=== PATIENT | female | born 1970 | race Caucasian/White ===

== ENCOUNTER 2021-01-04 02:29 | Outpatient (CLI) | payer BC, SELFPAY ==
[2021-01-04 07:55] LABS: ALT 27 U/L (14-59); AST 29 U/L (15-37); Albumin 3.9 g/dL (3.4-5.0); Alkaline Phosphatase 72 U/L (46-116); Anion Gap 8.6 mmol/L (3-11); BUN 18 mg/dL (7-18); Bilirubin, Total 0.7 mg/dL (0.2-1.0); CO2 27.4 mmol/L (21.0-32.0); CREATININE 0.7 mg/dL (0.55-1.02); Calcium 8.4 mg/dL (8.5-10.1); Calculated LDL 90 mg/dL (<100); Chloride 104 mmol/L (98-107); Cholesterol 230 mg/dL (<200); Glucose 88 mg/dL (74-106); HDL Cholesterol 133 mg/dL (40-60); Potassium 4.1 mmol/L (3.5-5.1); Sodium 140 mmol/L (136-145); Triglyceride 38 mg/dL (<150)
== END 2021-01-04 02:30 | disposition home or self-care (01) ==
LOC: LBO 02:29
PROVIDERS: PCP Family Medicine
DX: Z00.00 Encounter for general adult medical examination without abnormal findings (principal); Z13.220 Encounter for screening for lipoid disorders; Z13.228 Encounter for screening for other metabolic disorders
CPT/HCPCS: 36415; 80053; 80061

== ENCOUNTER 2021-03-15 11:39 | Outpatient (REF) | payer BC, SELFPAY ==
--- NOTE | 2021-03-15 08:00 | PAPFT_PTH ---
PATIENT: Shirin Constantino LOC: [facility] U#:[id number] AGE/SX: 50/F ROOM: RE03/15/[address]: Nicolette Haji APRN : 1970 BED: DIS: 03/15/2021 SPEC #: [id number] RECD: 03/15/21 12:49 STATUS: ENT REQ #: [id number] PAM: 03/15/21 08:[address]: Nicolette Haji DEPT: [facility] Cytology RECD BY: Libby Schwartz ENTERED: 03/15/21 12:49 SP TYPE: PAPFT OT DR: Saritha Nelson MD, DC Tissues: 1 - CX/ENDOCX FOR PAP SMEARS Procedures: PAP THIN PREP/UVM Screening HPV DNA PROBE Comments: [id number]
== END 2021-03-15 11:40 | disposition home or self-care (01) ==
LOC: LBN 11:39
PROVIDERS: PCP Family Medicine
DX: Z12.4 Encounter for screening for malignant neoplasm of cervix (principal); Z11.51 Encounter for screening for human papillomavirus (HPV)
CPT/HCPCS: 88142; 87624

== ENCOUNTER 2021-04-08 02:08 | Outpatient (CLI) | payer BC, SELFPAY ==
--- NOTE | 2021-04-08 09:00 | DI.MAMMO_ITS ---
Exam(s) MAMMO SCREENING EXAM: MAMMO SCREENING CLINICAL HISTORY: screening,Z12.39. TECHNIQUE: Bilateral full field digital CC and MLO mammographic images were obtained with 3D tomosyn thesis and utilizing computer aided detection (CAD). COMPARISON: Prior mammograms dating back to 2011, the most recent being September 2017.. Significant family history. Both her mother and sister were diagnosed with breast cancer in their fl d 40s. FINDINGS: There are no CAD designations. There are no new spiculated masses nor malignant appearing microcalcification groups. There is no significant architectural distortion nor skin thickening-retraction. IMPRESSION: No radiographic evidence of malignancy. BI-RADS Category 1 - Negative Breast Density - Category C - Heterogeneously dense Breast density Category C or D implies that the patient has dense breast tissue. Dense breast tissue can make it harder to find cancer on a mammogram. Dense breast tissue is also associated with an incr eased risk of breast cancer. This information about the result of the mammogram report was provided to the patient to raise their awareness. Use this report when you speak with the patient about their risks for breast cancer, which includes their family history. At that time, you may recommend additional screening tests (Ultrasoun d or MRI) as these tests may add significant information. A negative radiographic report should not delay biopsy if a dominant or clinically suspicious mass is present. Up to ten percent of cancers are not identified on mammography. A negative report may reinforce clinical impression. Adenosis and dense breasts may obscure an underlying neoplasm. False positive reports average 6 to 10%. Patient will receive a letter notifying them of these results.
== END 2021-04-08 02:28 ==
PROVIDERS: PCP Family Medicine
DX: Z12.31 Encounter for screening mammogram for malignant neoplasm of breast (principal)
CPT/HCPCS: 77063; 77067

== ENCOUNTER 2021-11-29 12:50 | Outpatient (REF) | payer BC, SELFPAY ==
[2021-11-30 13:56] LABS: COVID-19 RT-PCR UVMMC Result Negative (Negative)
== END 2021-11-29 12:51 | disposition home or self-care (01) ==
LOC: NCHCN 12:50
PROVIDERS: Visit Provider Physician Assistant
DX: Z20.822 Contact with and (suspected) exposure to COVID-19 (principal)
CPT/HCPCS: U0003

== ENCOUNTER → 2022-08-01 02:26 | Outpatient (CLI) | payer BC, SELFPAY ==
--- NOTE | 2022-08-01 17:00 | DI.MAMMO_ITS ---
Exam(s) MAMMO SCREENING EXAM: MAMMO SCREENING CLINICAL HISTORY: screening TECHNIQUE: Mammograms were interpreted according to the usual protocol including computer analysis w [employer] CAD system, tomosynthesis and C-view imaging. COMPARISON: 2012 through 2020 FINDINGS: The breasts are composed of scattered fibroglandular densities, Breast Density category B. No suspicious masses or suspicious microcalcifications are seen. No skin thickening or abnormal axillary lymph nodes are seen. There has been no significant change from prior exams. IMPRESSION: BI-RADS Category 1, Negative mammogram Yearly screening mammography is recommended. Breast Density - Category B, scattered fibroglandular densities. A negative radiographic report should not delay biopsy if a dominant or clinically suspicious mass is present. Up to ten percent of cancers are not identified on mammography. A negative report may reinforce clinical impression. Adenosis and dense breasts may obscure an underlying neoplasm. False positive reports average 6 to 10%. Patient will receive a letter notifying them of these results.
== END ==
PROVIDERS: PCP Nurse Practitioner Family; Visit Provider Nurse Practitioner Women's Health
DX: Z12.31 Encounter for screening mammogram for malignant neoplasm of breast (principal)
CPT/HCPCS: 77063; 77067

== ENCOUNTER 2022-12-22 06:48 | Day surgery (SDC) | payer BC, SELFPAY ==
--- NOTE | 2022-12-21 21:24 | W.PM.DSUDISC ---
Date of service: 12/22/22 Time of Service: 08:29 Discharge Plan Disposition Patient Disposition: Home Condition: Good Discharge Details Reason For Visit: Screening colonoscopy Attending Provider: Harshad Mullins Primary Care Provider: Israel Womack Home Meds and New Rx's Prescriptions: Continued cholecalciferol (vitamin D3) 50 mcg (2,000 unit) capsule 50 mcg PO DAILY ascorbic acid (vitamin C) 500 mg tablet 500 mg PO DAILY Collagen Plus Vitamin C 125-740 mg capsule 1 cap PO DAILY magnesium 250 mg tablet 250 mg PO DAILY estradiol 0.01 % (0.1 mg/gram) cream 1 g VG DAILY Qty: 42.5 2RF Rx Instructions: Use 1 pea sized amount at vaginal opening daily for and 0.5 gm intravaginally for 2 weeks then 2x per week Discontinued bisacodyl [Dulcolax (bisacodyl)] 5 mg tablet,delayed release (DR/EC) 5 mg PO ONCE Qty: 4 0RF Rx Instructions: Take according to provider's instructions for colonoscopy prep. polyethylene glycol 3350 17 gram/dose powder 17 g PO ONCE Qty: 238 0RF Rx Instructions: To be taken as directed by prescriber's office for colonoscopy prep. Discharge Instructions Instructions: Colorectal Polyps (GEN) Additional Instructions: Shirin, we were able to complete your colonoscopy without any difficulty today. I did find a single polyp in the beginning part of your large intestine which is also called the cecum. The polyp was quite small. I removed it completely. When I have the results of the pathology regarding what type of polyp is, I we will notify you of those results. 1. If tolerated, consume a soft, low fiber diet for 1-2 days. 2[address] Do not drive, drink alcohol, operate machinery, make critical decisions, or do activities that require coordination or balance for 24 hours. 3. Because air was put into your colon during the procedure, expelling air from your rectum (passing gas or farting) is normal. 4. You may not have a bowel movement for 1-3 days because of the colonoscopy prep. This is normal. 5. Go directly to the emergency room if you notice any of the following: Develop chills (warm to touch), or if you have a thermometer and your temperature is above 101 Difficulty breathing or difficultly swallowing Persistent vomiting Severe abdominal pain, other than gas cramps Severe chest pain Black, tarry stools Any bleeding ? exceeding one tablespoon 6. Call your physician if the site where your intravenous was started becomes red, swollen, painful, and warm to touch. 7. Your physician has reviewed your pre-procedure medications. Please continue to take those medications as previously ordered. You will be given specific information/education regarding any changes to your medications before leaving. Activity:: Activity as Tolerated Diet:: As Tolerated Discharge Orders Discharge Orders: Discharge Order (Routine); Ordered 12/21/22 Ordered By: Harshad Mullins DS: Diagnosis Discharge Diagnosis (1) Colon cancer screening: Status: Resolved Asessment and Plan: I will follow-up on the polypectomy result.
--- NOTE | 2022-12-21 21:26 | COLE_ITS ---
Date of service: 12/22/22 Time of Service: 08:30 Colonoscopy Report Date of procedure: 12/22/22 Pre-op diagnosis general: Screening colonoscopy Post-op diagnosis procedure note: other (Cecal polyp) Procedure: Colonoscopy with polypectomy Surgeon: Harshad Mullins Anesthesia Type: General:No Airway Estimated blood loss (mL): 5 Pathology: other (Cecal polyp) Complications: None Disposition: same day Indications: Shirin is a 52 year old woman who is undergoing a screening colonoscopy Prep: Miralax/Dulcolax Procedure Start Time: 08:12 Procedure End Time: :22 Retraction Time: 6 Findings: Cecal polyp Procedure Description: After the induction of monitored anesthetic care, and with the patient in left lateral decubitus position, I began by performing an external anorectal exam.? Perineum and skin were normal, as was the anal verge.? There was no evidence of external hemorrhoids.? Next, I performed a digital rectal exam.? I did not appreciate any abnormal findings.? Next, I advanced a colonoscope into the rectal vault.? I performed retroflexion.? This was normal.? Using insufflation, I then advanced the colonoscope beyond the rectal folds and into the sigmoid colon before advancing towards the cecum.? The quality of the prep was outstanding.? The scope was noted to be in the cecum by identification of the ileocecal valve and appendiceal orifice.? There was a single 0.25 cm polyp in the cecum. I removed this with cold forceps polypectomies. It appeared sessile in nature. There was minimal bleeding with polypectomy. I then began withdrawing the colonoscope using repeated irrigation as necessary for full jesse luation of the colonic mucosa. ?Once the scope was withdrawn to the level of the rectum, great care was taken to examine portions of the rectal folds.? Finally, the scope was withdrawn and the patient was brought to the same-day surgery recovery unit as the anesthetic wore off. ?The findings and instructions were shared with the patient prior to discharge.
[2022-12-22 06:50] VITALS: BP 137/54; PULSE 72; RESP 16; TEMP 36.1; O2SAT 98
[2022-12-22] MEDS: Lactated Ringers 1,000 ML 80 ML IV (07:19)
--- NOTE | 2022-12-22 07:58 | W.ANESPRE ---
General Info Date of Service Date Performed: 12/22/22 Height: 5 ft 4 in Weight: 64.5 kg Body Mass Index (BMI): 24.4 Surgical Procedure: Operation Date: 12/22/22 08:20 Proposed Procedure Side Surgeon ratna Mullins MD Meds Allergies and Home Medications Allergies Allergy/AdvReac Type Severity Reaction Status Date / Time No Known Allergies Allergy Verified 12/22/22 06:56 Home Medication Medication Instructions Recorded estradiol 0.01% (0.1 mg/gram) 1 g vaginal DAILY #42.5 grams 06/20/22 vaginal cream ascorbic acid (vitamin C) 500 mg 500 mg PO DAILY 07/11/22 tablet ascorbic acid 125 mg-collagen, 1 cap PO DAILY 07/11/22 hydrolyzed 740 mg capsule (Collagen Plus Vitamin C) magnesium 250 mg tablet 250 mg PO DAILY 07/11/22 cholecalciferol (vitamin D3) 50 50 mcg PO DAILY 11/24/22 mcg (2,000 unit) capsule Current Visit Medications: Current Medications Generic Name Dose Route Start Last Admin Trade Name Braydenq PRN Reason Stop Dose Admin Hyoscyamine Sulfate 0.125 mg 12/21/22 21:27 Hyoscyamine 0.125 Mg Sl/Oral/Chew SL DIRECTED PRN Ringer's Solution 1,000 mls @ 80 mls/hr 12/22/22 06:00 12/22/22 07:19 IV 01/20/23 23:59 80 mls/hr INFUSION NITIN Administration IV Miscellaneous Supplies 1 each 12/22/22 06:00 Iv Access IV 01/20/23 23:59 DIRECTED NITIN Ondansetron HCl 4 mg 12/21/22 21:27 Ondansetron 4 Mg/2 Ml Vial IVP Q4H PRN PRN Nausea / Vomiting Sodium Chloride 0 ml 12/22/22 06:00 Normal Saline Flush 10 Ml Syr IV 01/20/23 23:59 PRN PRN Sodium Chloride 0 ml 12/22/22 06:00 Normal Saline 10 Ml Vial IJ 01/20/23 23:59 DIRECTED PRN Sterile Water 0 ml 12/22/22 06:00 Water,Injection,Sterile 10 Ml Vial IJ 01/20/23 23:59 DIRECTED PRN PFSH Active Problems Active Problems: Problem Status Onset Code Postmenopausal Z78.0 Atrophic vaginitis N95.2 Annual physical exam Z00.00 Foot pain M79.673 Joint pain 05/18/10 M25.50 Fibrocystic disease of breast 09/16/11 N60.19 Distal radius fracture, left 08/23/16 S52.502A Sacro-iliac pain M53.3 Myofacial muscle pain M79.7 Medical History Medical History Low back pain MRI 02/07/14 - NEG Thoracic back pain (01/20/15) Surgical History Surgical History WRIST FX 01/08/16-[facility] LEFT Tobacco Smoking/Tobacco Use Status: Never Second hand exposure: No Alcohol Alcohol Intake: current Alcohol intake frequency: a few times a week Alcohol type: beer, wine and hard liquor Substance Use Substance use: Never Substance use type: does not use Vital Signs and Lab Results Vital Signs Most Recent Vital Signs in EMR: Most Recent Vital Signs Temp Pulse Resp BP Pulse Ox 36.1 C L 72 16 137/54 L 98 12/22/22 06:50 12/22/22 06:50 12/22/22 06:50 12/22/22 06:50 12/22/22 06:50 Lab Results Blood Type / Crossmatch: No Data to Display Complete Blood Count: No Data to Display Complete Metabolic Panel: No Data to Display Liver Function Panel: No Data to Display Coagulation Panel: No Data to Display Cardiac Panel: No Data to Display Arterial Blood Gas: No Data to Display Venous Blood Gas: No Data to Display Pancreas Panel: No Data to Display Thyroid Panel: No Data to Display Infectious Disease: No Data to Display Blood Cultures: No Data to Display Toxicology Panel: No Data to Display Panel: No Data to Display Anesthesia Assessment and Plan Anesthesia History Personal History: No History of Anesthesia Complications Family History: No Family History of Anesthesia Complications Exercise Tolerance Exercise Tolerance: Metabolic Equivalents>4 Pertinent Negatives Pertinent Negatives: No Symptoms of GERD, No Major Cardiovascular Symptoms or Complaints and No Major Pulmonary Symptoms or Complaints Cardiac & Pulmonary Exam Cardiac Exam: Normal S1/S2 Heart Sounds Pulmonary Exam: Clear Bilateral Breath Sounds Implantable Cardiac Device Does patient have a Pacemaker or an ICD?: No Airway Exam Known Difficult Airway: No Mallampati Class: 1 Mouth Opening: Normal (> 3cm) Thyromental Distance: Greater than 3 cm Neck Range of Motion: Full ROM Neck Circumference: Normal Teeth Condition: Normal Dentition ASA Classification ASA Score: ASA 2 Emergency Case?: No NPO Status NPO Status: NPO Clears >2 hours, Solids >8 hours Status Status: Not Relevant due to Medical History Anesthesia Plan Resuscitation Status: Full Code Anesthesia Technique: General Anesthesia Airway Planned: Natural Airway Monitors Used: Standard Monitors
[2022-12-22 08:00] VITALS: BMI 24.4
--- NOTE | 2022-12-22 08:19 | BOWEL_PTH ---
PATIENT: Shirin Constantino LOC: [facility] U#:[id number] AGE/SX: 52/F ROOM: RE12/22/[address]: Harshad Mullins MD : 1970 BED: DIS: 12/22/2022 SPEC #: [id number] RECD: 12/22/22 12:29 STATUS: LUCA REQ #: [id number] PAM: 12/22/22 08:[address]: Harshad Mullins DEPT: Surgical Specimen RECD BY: Libby Schwartz ENTERED: 12/22/22 12:29 SP TYPE: Bowel OTHR DR: Israel Wiggins DNP Tissues: 1 - BIOPSY BOWEL Procedures: GROSS AND MICRO LEVEL 4 Comments: [id number]
[2022-12-22 08:26] VITALS: BP 108/47; PULSE 59; RESP 14; TEMP 36.5; O2SAT 97
--- NOTE | 2022-12-22 08:34 | W.ANESPOSTOP ---
Postoperative Evaluation Date, Time and Location Date Performed: 12/22/22 Time Performed: 08:34 Patient Location: Day Surgery Unit Vital Signs Most Recent Imported Vital Signs: Most Recent Vital Signs Temp Pulse Resp BP Pulse Ox 36.5 C 59 L 14 108/47 L 97 12/22/22 08:26 12/22/22 08:26 12/22/22 08:26 12/22/22 08:26 12/22/22 08:26 Pain Score Most Recent Pain Score: Most Recent Pain Score Pain Level 0 12/22/22 08:26 Assessment Mental Status: Awake (Alert & Oriented to Patient Baseline) Airway and Respiratory Function: Patent airway with normal (patient baseline) respiratory exam Cardiovascular Function: Hemodynamically Stable Hydration Status: Adequately Hydrated Nausea & Vomiting: No Nausea or Vomiting Pain: Pt. Denies Any Pain Peripheral Nerve Block: Patient did not receive a nerve block
[2022-12-22 08:57] VITALS: BP 101/69; PULSE 54; RESP 16; TEMP 36.3; O2SAT 95
== END 2022-12-22 09:24 | disposition home or self-care (01) ==
PROVIDERS: PCP Nurse Practitioner Family; Visit Provider Surgery
PROC: 0DJD8ZZ Inspection of Lower Intestinal Tract, Via Natural or Artificial Opening Endoscopic (ICD-10-PCS; CPT 45378; principal; 2022-12-22 08:15)
DX: Z12.11 Encounter for screening for malignant neoplasm of colon (principal); K63.5 Polyp of colon
CPT/HCPCS: 45380; 88305

== ENCOUNTER 2023-04-27 15:44 | Outpatient (CLI) | payer BC, SELFPAY ==
--- NOTE | 2023-04-27 15:30 | RT.EKG_ITS ---
APPROVED REPORT Exam: Resting ECG Reason for Exam: palpitations Patient Location: O HR:55 bpm ECG Measurements Heart Rate 55 AXIS MD 163 P 62 QRSd 97 QRS 24 QT 434 T 29 QTc 416 Conclusion Sinus rhythm...normal P axis, V-rate 50- 99 Probable left atrial enlargement...P >50mS, <-0.10mV V1 RSR' in V1 or V2 Baseline wander in lead(s) V2,V6
== END 2023-04-27 15:45 | disposition home or self-care (01) ==
LOC: DI.CM 15:45
PROVIDERS: PCP Nurse Practitioner Family; Visit Provider Nurse Practitioner Family
DX: R00.2 Palpitations (principal)
CPT/HCPCS: 93010

== ENCOUNTER 2023-05-05 02:51 | Outpatient (CLI) | payer BC, SELFPAY ==
[2023-05-05 07:17] LABS: Abs Immature Grans 0.02 10^3/uL (0.0-0.06); Absolute Basophil Count 0.07 10^3/uL (0.0-0.2); Absolute Eosinophil Count 0.26 10^3/uL (0.0-0.7); Absolute Lymphocyte Count 2.18 10^3/uL (1.2-3.4); Absolute Monocyte Count 0.47 10^3/uL (0.1-0.8); Absolute Neutrophil Count 2.55 10^3/uL (1.2-6.7); Basophils % 1.3; Eosinophils % 4.7; HCT 40.6 % (36.0-46.0); HGB 13.4 g/dL (11.2-15.7); Immature Grans % 0.4; Lymphocytes % 39.3; MCH 29.7 pg (27.0-33.0); MCV 90 fL (80-95); MPV 9.4 fL (8.0-11.0); Monocytes % 8.5; Neutrophils % 45.8; Platelet Count 225 10^3/uL (130-400); RBC 4.51 10^6/uL (3.93-5.22); RDW 12.7 % (11.7-14.6); RDW-SD 42.2 fL; WBC 5.55 10^3/uL (4.4-10.8)
[2023-05-05 08:08] LABS: Anion Gap 7.4 mmol/L (3-11); BUN 15 mg/dL (7-18); CO2 27.6 mmol/L (21.0-32.0); CREATININE 0.7 mg/dL (0.55-1.02); Calcium 8.8 mg/dL (8.5-10.1); Calculated LDL 107 mg/dL (<100); Chloride 104 mmol/L (98-107); Cholesterol 254 mg/dL (<200); Estimated GFR 103.35 (mL/min/1.73m2); Glucose 82 mg/dL (74-106); HDL Cholesterol 130 mg/dL (40-60); Potassium 4.5 mmol/L (3.5-5.1); Sodium 139 mmol/L (136-145); TSH (W/Ref FT4) 2.49 uIU/mL (0.36-3.74); Triglyceride 88 mg/dL (<150)
== END 2023-05-05 02:52 | disposition home or self-care (01) ==
PROVIDERS: PCP Nurse Practitioner Family; Visit Provider Nurse Practitioner Family
DX: R00.2 Palpitations (principal); R79.89 Other specified abnormal findings of blood chemistry
CPT/HCPCS: 36415; 80048; 80061; 84443; 85025

== ENCOUNTER 2023-06-02 14:29 | Outpatient (RCR) | payer BC, SELFPAY ==
--- NOTE | 2023-06-02 14:30 | HOLTER_ITS ---
APPROVED REPORT Conclusion This is a 48-hour Holter monitor ordered for palpitations Rhythm throughout was sinus with an average heart rate of 67. Minimum was 41, maximum 146 There were very rare isolated atrial and ventricular ectopic beats Patient symptom of fluttering corresponded to an isolated premature atrial contraction There was no atrial fibrillation, no high-grade AV block, no pauses greater than 3 seconds
== END 2023-06-03 23:59 | disposition home or self-care (01) ==
LOC: CARDOPNVT 14:29
PROVIDERS: PCP Nurse Practitioner Family; Visit Provider Nurse Practitioner Family
DX: R00.2 Palpitations (principal)
CPT/HCPCS: 93225

== ENCOUNTER 2023-06-04 16:59 | Outpatient (RCR) | payer BC, SELFPAY | END 2023-07-04 23:59 | disposition home or self-care (01) | LOC: CARDOPNVT 16:59 | PROVIDERS: PCP Nurse Practitioner Family; Visit Provider Nurse Practitioner Family | DX: R00.2 Palpitations (principal) | CPT/HCPCS: 93226 ==

== ENCOUNTER → 2023-06-14 00:40 | Outpatient (CLI) | payer BC, SELFPAY ==
--- NOTE | 2023-06-14 14:53 | DI.US_ITS ---
APPROVED REPORT EXAM: Comprehensive 2D, Doppler, and color-flow Echocardiogram Patient Location: Out-Patient Bow Making Machine Operator: Jacinda Mukherjee RDCS (AE) Indications: Palpitations Other Information Study Quality: Good Conclusion Normal left ventricular wall thickness and chamber size. Ejection fraction is 59%. Wall motion is n ormal. Diastolic function is normal Normal right ventricular size and systolic function Both atria are normal in size There is no structural or hemodynamically significant valvular disease Estimated right ventricular systolic pressure is 24 mmHg Wall motion Left Ventricle The left ventricle is normal size. The left ventricular systolic function is normal. The left ventric ular ejection fraction is within the normal range. There is normal left ventricular wall thickness. T here is normal LV segmental wall motion. There is no ventricular septal defect visualized. LVEF is 59 %. Right Ventricle The right ventricle is normal size. The right ventricular systolic function is normal. Atria The left atrium size is normal. The right atrium size is normal. The interatrial septum is intact wit h no evidence for an atrial septal defect. Aortic Valve The aortic valve is normal in structure. Aortic valve is trileaflet. There is no aortic valvular sten osis. No aortic regurgitation is present. Mitral Valve The mitral valve is normal in structure. No evidence of mitral valve stenosis. Trace to mild mitral r egurgitation. Tricuspid Valve The tricuspid valve is normal in structure. There is no tricuspid valve stenosis. Trace tricuspid reg urgitation. The RVSP is 24.2 mmHg. Pulmonic Valve The pulmonary valve is normal in structure. There is no pulmonic valvular stenosis. Trace pulmonic re gurgitation. Great Vessels The aortic root is normal in size. The ascending aorta is normal in size. Aortic arch is normal in ca liber. IVC is normal in size and collapses >50% with inspiration. Pericardium There is no pericardial effusion. 2D Dimensions IVSD d PLAX 0.78 cm F: 0.6-1.0 Ao Root d 2.63 cm F: 2.7 - 3.3 LVPW d PLAX 0.78 cm F: 0.6 - 1.0 Ao Asc Diam d 3.11 cm F: 2.3 - 3.1 LVID d PLAX 5.13 cm F: 3.8 - 5.2 LVDs 3.44 cm F: 2.2 - 3.5 LV EF Teichholz 61.1 % FS 32.95 % LV EDV (Teich) 125.7 mL LV ESV (Teich) 48.9 mL Stroke Vol Index (Teich) 46.00 M-Mode TAPSE 2.68 cm (M/F) >1.7 Auto EF LV EDV A4C 109.3 mL LV EDV A2C 97.2 mL LV EDV BP 102.5 mL LV ESV A4C 47.2 mL LV ESV A2C 42.1 mL LV ESV BP 43.3 mL LVEF(%) A4C 56.8 % LVEF(%) A2C 56.7 % LVEF(%) BP 57.8 % LV SV A4C 62.1 ml LV SV A2C 55.1 ml LV SV BP 59.3 ml LV CO A4C 3.6 L/min LV CO A2C 3.2 L/min LV CO BP 3.4 L/min HR A4C 58.35 BPM HR A2C 57.88 BPM LV EDV Index (BP) LA Volume LA Length A4C 5.3 cm LA Length A2C 5.8 cm LA Area A4C s 18.57 cm2 LA Area A2C s 15.84 cm2 LA Vol A4C A-L 54.80 mL LA Vol A2C A-L 36.68 mL LA Vol Biplane A-L 46.7 mL LA Vol/BSA A4C A-L LA Vol/BSA A2C A-L LA Vol/BSA BP A-L 28.0 mL/m2 LA Vol A4C MOD 51.0 mL LA Vol A2C MOD 36.7 mL LA Vol BP MOD 44.0 mL RA Volume RA Area A4C 11.4 cm2 RA ESV A4C (A-L) 24.5mL RA Vol/BSA A4C A-L RA Length A4C 4.5 cm RA ESV A4C (MOD) 23.3mL LV Diastology MV E' medial 0.107 (>0.07 m/s) MV E Vmax 0.68 (0.4-1.3 m/s) MV E/E' MED 6.38 (<14) MV A Vmax 0.80 (0.4-1.3 m/s) MV E' lateral 0.149 (>0.1 m/s) E/A Ratio 0.9 MV E/E' LAT 4.55 (<14) MV E' Average 0.128 m/s MV E/E'(average) 5.31 Aortic Valve AoV Vmax 1.65 m/s LVOT Vmax 1.28 m/s AoV Peak Grad 10.9 mmHg LVOT Peak Grad 6.6 mmHg AoV Area (Vmax) 2.16 cm2 LVOT VTI 0.282 m AoV VTI 0.367 m LVOT Mean Grad 3.9 mmHg AoV Mean Juni. 1.11 m/s LVOT SV 78.69 mL AoV Mean Grad 5.7 mmHg LVOT Diam s 1.85 cm AoV Area (VTI) 2.14 cm2 Velocity Ratio 0.78 Mitral Valve MV DT 225 (160-240 msec) MV Vmax TIPS 0.86 m/s MV Mean Grad 1.1 (<2mmHg) MV VTI 0.307 m Pulmonary Valve PV Vmax 1.29 (0.5-1.5 m/s) RVOT Vmax 1.03 m/s PV Peak Grad 6.6 mmHg RVOT Peak Gr. 4.2 mmHg PV Mean Juni 0.90 m/s RVOT VTI 0.224 m PV Mean Grad 3.7 mmHg RVOT Mean Gr. 2.3 mmHg Tricuspid Valve RA Pressure 3.00 mmHg TR Vmax 2.30 m/s TV S' 0.14 m/s TR Peak Grad 21.2 mmHg RVSP (TR) 24.2 mmHg
== END ==
PROVIDERS: PCP Nurse Practitioner Family; Visit Provider Nurse Practitioner Family
DX: R00.2 Palpitations (principal)
CPT/HCPCS: 93306

== ENCOUNTER → 2023-07-10 00:13 | Outpatient (CLI) | payer BC, SELFPAY ==
--- NOTE | 2023-07-10 06:15 | ETT_ITS ---
APPROVED REPORT Exam: Exercise Treadmill Patient Location: Out-Patient Room/Bed: Stress Nurse: Onel Luna RN Ordering Provider:SIDDHARTHA FLORES, Contact Number: [phone] BMI: 24.37 Baseline Rhythm: sb, Sinus Bradycardia Indications: Palpitations Medical History Medical History: None Cardiac Medications: None Allergies: NKA Cardiac Risk Factors: None Previous Cardiac Procedures: None Pretest Chest Pain Characteristics: None Exercise History: Physically active Physical Disabilities: none Lung Sounds: clear Heart Sounds: Reg. S1, S2. Stress Test Details Test: Exercise stress testing was performed using a Andrew protocol. Rest Stress HR Resting HR Supine: 59 bpm Max Heart Rate (APMHR): 166 bpm Resting HR Standin bpm Target HR (85% APMHR): 141 bpm Max HR Achieved: 145 bpm % of APMHR: 87 Recovery HR: 68 bpm HR response to stress: Normal HR response to stress BP Resting BP Supine: 130/62 mmHg Resting BP Standin/84 mmHg Max BP: 162/62 mmHg Recovery BP: 118/58 mmHg BP response to stress: Normal blood pressure response to stress. ECG Resting ECG: Sinus Rhythm Ectopy: none Stress ECG: Sinus Tachycardia ST Change: No significant ST segment changes noted Arrhythmia: none Recovery ECG: Sinus Rhythm Recovery ST Change: No significant ST segment changes noted Clinical Reason for Termination: Fatigue, Target HR Achieved Stress Symptoms: none Exercise duration: 14 min08 sec Highest Stage Reached: Stage 5: 5.0 mph at 18% grade. Exercise capacity: 14.86 METs Angina Score: None Gutiérrez Treadmill Score: 11.4 Rate Pressure Product: 18006 Stress ECG Conclusion 1. Resting electrocardiogram was within normal limits 2. Patient exercised on the Andrew protocol completed workload of 14.86 METS 3. Normal heart rate and blood pressure response to exercise. The patient achieved 87% of predicted heart rate for age 4. There was no electrocardiographic evidence of myocardial ischemia 5. There were no significant dysrhythmias Gutiérrez Treadmill Score is 11.4 which is Low risk. Stress Test Summary STAGE Time (mins) Speed (mph) Grade (%) HR BP SpO2 SYMPTOMS METS Supine 59 130/62 98 Standing 65 118/84 1 3 1.7 10 94 128/92 97 4.5 2 6 2.5 12 105 132/88 94 7 3 9 3.4 14 112 140/72 92 10 4 12 4.2 16 121 96 13 1 min recovery 143 162/62 95 3 min recovery 68 132/68 97 6 min recovery 68 118/58 96
== END ==
PROVIDERS: PCP Nurse Practitioner Family; Visit Provider Nurse Practitioner Family
DX: R00.2 Palpitations (principal)
CPT/HCPCS: 93017

== ENCOUNTER 2023-08-03 15:45 | Outpatient (REF) | payer BC, SELFPAY ==
--- NOTE | 2023-08-03 15:00 | PAPFT_PTH ---
PATIENT: Shirin Constantino LOC: [facility] U#:[id number] AGE/SX: 53/F ROOM: RE08/03/[address]: Loretta Chester CNM : 1970 BED: DIS: 08/03/2023 SPEC #: [id number] RECD: 08/03/23 17:35 STATUS: LUCA REQ #: [id number] PAM: 08/03/23 15:[address]: Loretta Chester DEPT: [facility]END[facility] Cytology RECD BY: Libby Schwartz ENTERED: 08/03/23 17:35 SP TYPE: PAPFT OT DR: Israel Wiggins DNP Tissues: 1 - CX/ENDOCX FOR PAP SMEARS Procedures: PAP THIN PREP/UVM Screening HPV DNA PROBE Comments: [id number]
== END 2023-08-03 15:46 | disposition home or self-care (01) ==
LOC: LBN 15:45
PROVIDERS: PCP Nurse Practitioner Family; Visit Provider Advanced Practice Midwife
DX: Z12.4 Encounter for screening for malignant neoplasm of cervix (principal)
CPT/HCPCS: 88142; 87624

== ENCOUNTER 2023-08-03 20:27 | Outpatient (CLI) | payer BC, SELFPAY ==
[2023-08-03 16:10] LABS: Hemoglobin A1C 5.4 % (<5.7)
[2023-08-03 16:49] LABS: C-Reactive Protein 0.05 mg/dL (0.0-0.3)
[2023-08-03 17:27] LABS: Vitamin D 25 Total 49.7 ng/mL (30-100)
[2023-08-07 15:41] LABS: ANA Interpretation Negative (Negative)
== END 2023-08-03 20:28 | disposition home or self-care (01) ==
LOC: LBO 20:27
PROVIDERS: PCP Nurse Practitioner Family; Visit Provider Advanced Practice Midwife
DX: Z78.0 Asymptomatic menopausal state (principal); Z80.1 Family history of malignant neoplasm of trachea, bronchus and lung
CPT/HCPCS: 36415; 82306; 83036; 86038; 86140

== ENCOUNTER → 2023-08-11 00:20 | Outpatient (CLI) | payer BC, SELFPAY ==
--- NOTE | 2023-08-11 09:00 | DI.MAMMO_ITS ---
Exam(s) MAMMO SCREENING EXAM: MAMMO SCREENING CLINICAL HISTORY: screening, Z12.39. TECHNIQUE: Bilateral full field digital CC and MLO mammographic images were obtained with 3D tomosyn thesis and utilizing computer aided detection (CAD). COMPARISON: Prior mammograms were reviewed. FINDINGS: There has been no significant change in the appearance and distribution of the fibroglandular tissue. No CAD designations. There are no new spiculated masses nor malignant appearing microcalcification groups. There is no significant architectural distortion nor skin thickening-retraction. IMPRESSION: No radiographic evidence of malignancy. BI-RADS Category 1 - Negative Breast Density - Category B - Scattered areas of fibroglandular density Breast density Category C or D implies that the patient has dense breast tissue. Dense breast tissue can make it harder to find cancer on a mammogram. Dense breast tissue is also associated with an incr eased risk of breast cancer. This information about the result of the mammogram report was provided to the patient to raise their awareness. Use this report when you speak with the patient about their risks for breast cancer, which includes their family history. At that time, you may recommend additional screening tests (Ultrasoun d or MRI) as these tests may add significant information. A negative radiographic report should not delay biopsy if a dominant or clinically suspicious mass is present. Up to ten percent of cancers are not identified on mammography. A negative report may reinforce clinical impression. Adenosis and dense breasts may obscure an underlying neoplasm. False positive reports average 6 to 10%. Patient will receive a letter notifying them of these results.
== END ==
PROVIDERS: PCP Nurse Practitioner Family; Visit Provider Nurse Practitioner Family
DX: Z12.31 Encounter for screening mammogram for malignant neoplasm of breast (principal); Z13.820 Encounter for screening for osteoporosis; M85.89 Other specified disorders of bone density and structure, multiple sites
CPT/HCPCS: 77063; 77067

== ENCOUNTER → 2023-08-11 00:34 | Outpatient (CLI) | payer BC, SELFPAY ==
--- NOTE | 2023-08-11 09:00 | DI.DEXA_ITS ---
Exam(s) XR DEXA BONE DENSITY W/WO PEDRITO EXAM: XR DEXA BONE DENSITY W/WO PEDRITO CLINICAL HISTORY: bone density measurement, POSTMENOPAUSAL, Z78.0 SCREENING TECHNIQUE: Routine DEXA evaluation of the lumbar spine, hip, or forearm. COMPARISON: No exams were available for comparison FINDINGS: Performed on a Hologic unit. Lateral image: No compression fracture evident. Lumbar Spine total T-score: -1.9 Hip total T-score:-1.9 Independent reading at the level of the femoral neck yields T-score of -2.3 Forearm total T-score: -1.7 IMPRESSION: Bone mineral density measures in the osteopenia range. Fracture risk is moderate. Note: Any spine fracture indicates 5x risk for subsequent spine fracture and 2x risk for subsequent h ip fracture. World Health Organization criteria for BMD interpretation classify patients: Normal...... T- Score at or above -1.0 Osteopenic... T- Score between -1.0 and -2.5 Osteoporosis... T-Score at or below -2.5
== END ==
PROVIDERS: PCP Nurse Practitioner Family; Visit Provider Advanced Practice Midwife
DX: Z78.0 Asymptomatic menopausal state (principal); Z13.820 Encounter for screening for osteoporosis; Z12.31 Encounter for screening mammogram for malignant neoplasm of breast
CPT/HCPCS: 77080

== ENCOUNTER 2024-01-02 16:41 | Outpatient (REF) | payer BC, SELFPAY ==
[2024-01-02 22:49] LABS: Anion Gap 10.8 mmol/L (3-11); BUN 16 mg/dL (7-18); CO2 28.2 mmol/L (21.0-32.0); CREATININE 0.8 mg/dL (0.55-1.02); Calcium 9.6 mg/dL (8.5-10.1); Chloride 102 mmol/L (98-107); Glucose 105 mg/dL (74-106); Potassium 4.2 mmol/L (3.5-5.1); Sodium 141 mmol/L (136-145)
[2024-01-03 19:07] LABS: HIV-1/2 Ag & Ab Screen Negative (Negative)
[2024-01-03 19:27] LABS: Hepatitis C Ab w Rflx HCV PCR Negative (Negative)
== END 2024-01-02 16:42 | disposition home or self-care (01) ==
LOC: LBN 16:41
PROVIDERS: PCP Nurse Practitioner Family; Visit Provider Nurse Practitioner Family
DX: Z13.1 Encounter for screening for diabetes mellitus (principal); Z11.59 Encounter for screening for other viral diseases; Z11.4 Encounter for screening for human immunodeficiency virus [HIV]
CPT/HCPCS: 80048; 86803; 87389

== ENCOUNTER 2024-08-23 00:27 | Outpatient (CLI) | payer BC, SELFPAY ==
--- OUTSIDE RECORDS SUMMARY | 2024-08-23 00:28 | XMS_ITS | Encounter Summary ---
Author Organization [facility] Address [address] [place] [address] Care Team Providers Care Shop Firer/Fireman Name Role Phone Saritha Nelson MD Primary Care Provider [phone] Reason for Visit * Reason Onset Date Comments Appointment Related 08/21/2019 Encounter Details Date Type Department Care Team (Late st Contact Info) Description 08/21/2019 Telephone [facility] Surgical Oncology - [facility] [address], [place] [id number] Camilla De La Cruz, PA-C [address] [facility], [address] [place] [address] Appointment Related Social History Tobacco Use Types Packs/Day Years Used Date Smoking Tobacco: Former Cigarettes 0.3 2 1 984 - 1986 Smokeless Tobacco: Never Alcohol Use Standard Drinks/Week Comments Yes 0 (1 standard drink = 0.6 oz pur e alcohol) 2 alcoholic drinks daily Comments Unknown Sex and Gender Information Value Date Recorded Sex Assigned at Not on file Legal Sex Female 18:12 EST Gender Identity Not on file Sexual Orientation Not on file documented as of this encounter Functional Status * Because of a physical, mental, or emotional condition, does this person have difficulty doing errands alone such as visiting a doctor's office or shopping? Answer Date of Assessment Author No 07/23/2018 14:03 EST documented as of this encounter Mental Status * Because of a physical, mental, or emotional condition, does this person have serious difficulty concentrating, remembering, or making decisions? Answer Entry Date Author No 07/23/2018 14:03 EST documented in this encounter Miscellaneous Notes * Telephone Encounter - Dorothea Baird - 08/21/2019 1304 EST LMOM in regards to Pt's missed apt on 08/14/2019 with ASH Fry. Asked PT if they would like to [facility] and left contact information to [facility]. Dorothea Baird 08/21/2019 13:05 documented in this encounter Plan of Treatment Not on file documented as of this encounter Visit Diagnoses Not on filedocumented in this encounter Care Teams Shop Firer/Fireman Relationship Specialty Start Date End Date Saritha Nelson MD [address] [place] [address] PCP - General 06/20/18 documented as of this encounter
--- OUTSIDE RECORDS SUMMARY | 2024-08-23 00:28 | XMS_ITS | Clinical Summary ---
Author Organization [facility] Address [address] [facility] [place] [address] Care Team Providers Care Maintenance Apprentice Name Role Phone Rocio, Israel Ley DNP Primary Care Provider [phone] Allergies No known active allergies Medications Medication Sig Dispensed Refills Start Date End Date Status cyclobenzaprine (FLEXERIL) 10 mg tablet 10MG, PO, Q8H 10/05/2006 Active ibuprofen (MOTRIN) 800 mg tablet 800MG, PO, Q8H 10/05/2006 Active estradioL (ESTRACE) 0.01 % (0.1 mg/gram) Cream APPLY A PEA-SIZED AMOUNT AT VAGINAL OPENING AND INSERT 0.5GM VAGINALLY DAILY FOR 2 WEEKS THEN DECREASE USE TO TWICE PER WEEK 10/19/2022 Active Immunizations Name Administration Dates Next Due Covid-19 Monovalent (Paola /J&J) (4418-3193) 11/20/2020 Covid-19 Monovalent (Moderna Spikevax) 12yrs+ () 07/14/2021 Hepatitis A/B (TwinRix) 11/09/2005,05/31/2005, Hepatitis B, Unspecified Formulation 05/31/2005 Td Adult (not absorbed) 04/19/2005 Social History Tobacco Use Types Packs/Day Years Used Date Smoking Tobacco: Former Cigarettes Smokeless Tobacco: Never Tobacco Cessation:Counseling Given: Not Answered Sex and Gender Information Value Date Recorded Sex Assigned at Not on file Gender Identity Not on file Sexual Orientation Not on file Plan of Treatment Health Maintenance Due Date Last Done Comments CT Colonography 1969 Colonoscopy 1969 Colorectal Cancer Screening 1969 FIT DNA 1969 FIT 1969 Sigmoidoscopy (10 year) with FIT yearly 1969 Sigmoidoscopy 1969 HIV screen 1987 Hepatitis C Screening 1987 HPV test 1999 PAP Smear 1999 Tetanus/Diphtheria/Pertussis Vaccines (1 - Tdap) 04/20/2005 04/19/2005 Breast Cancer Share Decision Needed 2009 Breast Cancer screening 2009 Zoster vaccine (1 of 2) 2019 Covid-19 Vaccine (3 - 2023-2 5 season) 2024 07/14/2021, 11/20/2020 Influenza (Flu) vaccine (1 o f 1 - Influenza standard series) 05/05/2024 Advance Directive 2024 Hepatitis B vaccine (0-59 yrs) Completed 0 11/09/2005, 05/31/2005, 05/31/2005, Additional history exists Care Teams Maintenance Apprentice Relationship Specialty Start Date End Date Israel Chan DNP [facility] [address] [place], [place] [address] PCP - General Family Medicine 11/16/22
--- OUTSIDE RECORDS SUMMARY | 2024-08-23 00:28 | XMS_ITS | Clinical Summary ---
Author Organization [facility] Address [address] [place] [address] Care Team Providers Care Equipment Service Technician Name Role Phone Saritha Nelson MD Primary Care Provider [phone] Allergies No known active allergies Medications estradiol (ESTRING VAGL) Place vaginally. Active Active Problems No known active problems Surgical History Surgery Date Site/Laterality Comments WRIST SURGERY 09/04/2015 - 09/03/2016 Left FINGER SURGERY 09/04/2015 - 09/03/2016 Left Left thumb surgery WISDOM TOOTH EXTRACTION Family History Medical History Relation Comments Breast Cancer Mother Breast Cancer Sister Relation Status Comments Mother Alive Sister Alive Social History Tobacco Use Types Packs/Day Years Used Date Smoking Tobacco: Former Cigarettes 0.3 2 1 984 - 1986 Smokeless Tobacco: Never Alcohol Use Standard Drinks/Week Comments Yes 0 (1 standard drink = 0.6 oz pur e alcohol) 2 alcoholic drinks daily Interpersonal Safety Answer Date Record ed Physically Hurt Never 04/05/2020 Verbally Threaten Not on file 04/05/2020 Comments Unknown Sex and Gender Information Value Date Recorded Sex Assigned at Not on file Legal Sex Female 18:12 EST Gender Identity Not on file Sexual Orientation Not on file Obstetrics History Last Filed Vital Signs Vital Sign Reading Time Taken Comments Blood Pressure 112/53 07/23/2018 1400 EST Pulse 67 07/23/2018 1400 EST Temperature 36.5 ??C (97.7 ??F) 07/23/2018 1400 EST Respiratory Rate 12 07/23/2018 1400 EST Oxygen Saturation - - Inhaled Oxygen Concentration - - Weight 58.4 kg (128 lb 11.2 oz) 07/23/2018 1400 EST Height 163.6 cm (5' 4.41) 07/23/2018 1400 EST Body Mass Index 21.81 07/23/2018 1400 EST Plan of Treatment Health Maintenance Due Date Last Done Comments Hepatitis B Vaccine (1 of 3 - 19+ 3-dose series) 06/10 COVID-19 Vaccine (2023- season) 2024 Hepatitis C Screen Completed 01/02/2024 Medical Devices Implanted Type Area Senior Commissions Analyst Device Identifier Shelf Expiration Date Model / Serial / Lot Left Wrist Plate Rd 09/19/18 Ortho Implant Procedures Procedure Name Priority Date/Time Associated Diagnosis Comments HEPATITIS C AB W REFLEX TO HCV RNA BY PCR Routine 01/02/2024 16:10 EDT from Last 3 Months or Most Recently Relevant to Health Maintenance Results * HEPATITIS C AB W REFLEX TO HCV RNA BY PCR (01/02/2024 16:10 EDT) Hep C Antibody Negative Negative 01/03/2024 19:23 EDT [facility] Blood VENOUS BLOOD / Unknown 01/02/2024 16:10 EDT 01/03/2024 17:30 EDT us Provider Outr Resulting Lab CHEMISTRY & BLOOD GA S ORDERABLES Final Result [facility] [address] [place] [address] from Last 3 Months or Most Recently Relevant to Health Maintenance Insurance [facility] Care Teams Equipment Service Technician Relationship Specialty Start Date End Date Saritha Nelson MD [address] [place] [address] [address] [place] [phone] PCP - General 06/20/18
--- OUTSIDE RECORDS SUMMARY | 2024-08-23 00:28 | XMS_ITS | Encounter Summary ---
Author Organization [facility] [place] [address] Care Team Providers Care Philosophy And Religion Instructor Name Role Phone Israel Chan DNP Primary Care Provider [phone] Encounter Details Date Type Department Care Team (Latest Contact Info) Description 11/16/2022 Travel Social History Tobacco Use Types Packs/Day Years Used Date Smoking Tobacco: Former Cigarettes Smokeless Tobacco: Never Sex and Gender Information Value Date Recorded Sex Assigned at Not on file Gender Identity Not on file Sexual Orientation Not on file documented as of this encounter Plan of Treatment Not on file documented as of this encounter Visit Diagnoses Not on filedocumented in this encounter Care Teams Philosophy And Religion Instructor Relationship Specialty Start Date End Date Israel Chan DNP [address] [place] [address] PCP - General Family Medicine 11/16/22 documented as of this encounter
--- OUTSIDE RECORDS SUMMARY | 2024-08-23 00:28 | XMS_ITS | Encounter Summary ---
Author Organization [facility] Address [address] [place] [address] Care Team Providers Care Pinking Sewing Machine Operator Name Role Phone Saritha Nelson MD Primary Care Provider [phone] Encounter Details Date Type Department Care Team (Late st Contact Info) Description 11/29/2021 Lab Requisition [facility] Pathology & Laboratory Medicine - [address] [address] Outr Resulting Lab, Provider Social History Tobacco Use Types Packs/Day Years [...] 07/23/2018 14:03 EST documented in this encounter Plan of Treatment Not on file documented as of this encounter Procedures Procedure Name Priority Date/Time Associated Diagnosis Comments ZZCOVID-19 TEST [facility] PCR Today 11/29/2021 10:50 EDT COVID-19 TESTING Routine 11/29/2021 10:5 0 EDT documented in this encounter Results * COVID-19 TEST [facility] PCR (11/29/2021 10:50 EDT) Swab 11/29/2021 10:5 0 EDT 11/29/2021 21:43 EDT us Provider Outr Resulting Lab MICROBIOLOGY - GENER AL ORDERABLES Final Result [facility] [address] [place] [address] * COVID-19 TESTING (11/29/2021 10:50 EDT) COVID-19 rt-PCR Result Negative Negative 11/30/2021 13:50 EDT [facility] Comment: This test has not been FDA cleared or approved. This test has been authorized by FDA under an EUA for use by authorized laboratories. This test has been authorized only for detection of nucleic acid from 2019-nCoV, not for any other viruses or pathogens. This test is only authorized for the duration of the declaration that circumstances exist justifying the authorization of emergency use of in vitro diagnostic tests for detection and/or diagnosis of 2019-nCoV under section 564(b)(1) of Act, 21 U.S.C ?? 360bbb-3(b) (1), unless the authorization is terminated or revoked sooner. Negative results do not preclude 2019-nCoV infection and should not be used as the sole basis for treatment or other patient management decisions. Negative results must be combined with clinical observations, patient history, and epidemiological information. Testing was performed using the rochelle SARS-CoV-2 assay ([employer] on the Rochelle 6800 System Performing Lab [address] [facility] 11/30/2021 13:50 EDT [facility] Swab 11/29/2021 10:5 0 EDT 11/29/2021 21:43 EDT us Provider Outr Resulting Lab MICROBIOLOGY - GENER AL ORDERABLES Final Result [facility] [address] [place] [address] documented in this encounter Visit Diagnoses Not on filedocumented in this encounter Care Teams Pinking Sewing Machine Operator Relationship Specialty Start Date End Date Saritha Nelson MD [address] [place] [address] PCP - General 06/20/18 documented as of this encounter
--- OUTSIDE RECORDS SUMMARY | 2024-08-23 00:28 | XMS_ITS | Encounter Summary ---
Author Organization [facility] Address [address] [place] [address] Care Team Providers Care Analyst Microbiology Lab Name Role Phone Saritha Nelson MD Primary Care Provider [phone] Encounter Details Date Type Department Care Team (Late st Contact Info) Description 12/22/2022 Lab Requisition [facility] Pathology & Laboratory Medicine - [address] [address] Harshad Mullins MD [address] [place] [address], [address] [place], [place] [address] Encounter for screening for malignant neoplasm of colon Social History Tobacco Use Types Packs/Day Years [...] Procedure Name Priority Date/Time Associated Diagnosis Comments SURGICAL PATHOLOGY Today 12/22/2022 8:19 EDT Encounter for screening for malignant neoplasm of colon documented in this encounter Results * SURGICAL PATHOLOGY (12/22/2022 8:19 EDT) Note to Patient The following pathology results have been interpreted by your pathologist and may be available to you before your health provider has had the opportunity to review them. Please allow time for your provider to receive these results and explore management options, if applicable. 12/23/2022 14:10 [facility] Final Diagnosis A. COLON, CECUM, POLYP, BIOPSY: - Tubular adenoma. 12/23/2022 14:10 [facility] Attestation By the signature below, the attending physician certifies that they have 1) personally conducted a gross and/or microscopic examination of the described specimen(s), and/or personally interpreted the results of laboratory testing of the described specimen(s), and 2) personally rendered or confirmed the above diagnosis. 12/23/2022 14:10 [facility] at 1410 Clinical History Encounter for screening for malignant neoplasm of colon; colon cancer screening; clinical diagnosis code: Z12.11 12/23/2022 14:10 [facility] Gross Description A. Received in formalin labelled with proper patient identification (initials M, J) and cecal polyp is a light mcpherson polypoid tissue measuring 0.2 x 0.2 x 0.1 cm with an attached stalk measuring 0.5 x 0.1 x 0.1 cm. Submitted intact in A1. ASH MEJÍA(ASCP) 12/22/2022 18:23 12/23/2022 14:10 [facility] Performing Lab [facility] 12/23/2022 14:10 [facility] Scanned Images 12/23/2022 14:10 EDT [facility] Tissue CECUM STRUCTURE / Unknown 12/22/2022 8:19 EDT 12/22/2022 17:28 EDT us Harshad Mullins MD PATHOLOGY ORDERABLES Final Resu lt [facility] [address] [place] [address] documented in this encounter Visit Diagnoses Diagnosis Encounter for screening for malignant neoplasm of colon Special screening for malignant neoplasms, colon documented in this encounter Care Teams Analyst Microbiology Lab Relationship Specialty Start Date End Date Saritha Nelson MD [address] [place] [phone] PCP - General 06/20/18 documented as of this encounter
--- OUTSIDE RECORDS SUMMARY | 2024-08-23 00:28 | XMS_ITS | Referral Summary ---
Author Organization [facility] Address [address] [place] [address] Care Team Providers Care Adapted Physical Education Teacher Name Role Phone Saritha Nelson MD Primary Care Provider [phone] Allergies No known active allergies Medications estradiol (ESTRING VAGL) Place vaginally. Active Active Problems No known active problems Social History Tobacco Use Types Packs/Day Years Used Date Smoking Tobacco: Former Cigarettes 0.3 2 1 984 - 1985 Smokeless Tobacco: Never Alcohol Use Standard Drinks/Week [...] on file Sexual Orientation Not on file Last Filed Vital Signs Vital Sign Reading [...] Body Mass Index 21.81 07/23/2018 1400 EST Functional Status * Because of a physical, mental, or emotional condition, does this person have difficulty doing errands alone such as visiting a doctor's office or shopping? Answer Date of Assessment Author No 07/23/2018 14:03 EST Mental Status * Because of a physical, mental, or emotional condition, does this person have serious difficulty concentrating, remembering, or making decisions? Answer Entry Date Author No 07/23/2018 14:03 EST Plan of Treatment Not on file Medical Devices Implanted Type Area New Car Sales Manager Device Identifier Shelf Expiration Date Model / [...] C Antibody Negative Negative 01/03/2024 19:23 EDT [facility] Blood VENOUS BLOOD / Unknown 01/02/2024 16:10 EDT 01/03/2024 17:30 EDT us Provider Outr Resulting Lab CHEMISTRY & BLOOD GA S ORDERABLES Final Result Performing Organization Address City/State/[facility] Co de Phone Number [facility] [address] [place] [address] from Last 3 Months or Most Recently Relevant to Health Maintenance Insurance [facility] Care Teams Adapted Physical Education Teacher Relationship Specialty Start Date End Date Doportia, Saritha M, MD [address] [place] [phone] PCP - General 06/20/18
--- OUTSIDE RECORDS SUMMARY | 2024-08-23 00:28 | XMS_ITS | Encounter Summary ---
Author Organization [facility] Address [address] [place] [address] Care Team Providers Care Wood Cut Engraver Name Role Phone Saritha Nelson MD Primary Care Provider [phone] Encounter Details Date Type Department Care Team (Late st Contact Info) Description 08/07/2023 Lab Requisition [facility] Pathology & Laboratory Medicine - [address] [address] Loretta Chester, [address] [place] [address] Encounter for other general examination Social History Tobacco Use Types Packs/Day Years [...] Procedure Name Priority Date/Time Associated Diagnosis Comments PAP TEST Today 08/03/2023 15:00 EST Encounter for other general examination HPV DNA DETECTION WITH GENOTYPING, PCR Today 08/03/2023 15:00 EST Encounter for other general examination documented in this encounter Results * HUMAN PAPILLOMAVIRUS (HPV) DETECTION-HIGH RISK TYPES (08/03/2023 15:00 EST) HPV other High Risk types, PCR Negative Negative 08/14/2023 16:23 [facility] Comment:No E6 or E7 mRNA is detected from HPV types 16,18,31,33,35,39,45,51,52,56,58,59,66, and 68 by bean sprout laborer mediated amplification. Pap Test CERVIX UTERI STRUCTURE / Unknown 08/03/2023 15:00 EST 08/11/2023 13:50 EST us Loretta Chester [facility] MICROBIOLOGY - GENERAL ORDERA BLES Final Result Performing Organization Address City/State/[facility] Co de Phone Number [facility] [address] [place] [address] * PAP TEST (08/03/2023 15:00 EST) Specimens A. Cervix and/or Endocervix , ThinPrep Imaging System with Manual Evaluation 08/15/2023 10:16 [facility] Specimen Adequacy Satisfactory for Evaluation - transformation zone component present 08/15/2023 10:16 [facility] General Categorization Negative for intraepithelial lesion or malignancy 08/15/2023 10:16 [facility] Descriptive Diagnosis Reactive cellular changes associated with inflammation present (includes repair). 08/15/2023 10:16 [facility] Attestation By the signature below, the attending physician certifies that they have personally conducted a gross and/or microscopic examination of the described specimens and rendered or confirmed the above diagnosis. 08/15/2023 10:16 [facility] at 1016 Clinical History SEE BELOW 08/15/20 10:16 [facility] HPV The result for the Human Papillomavirus (HPV) Detection-High Risk Types is Negative. No E6 or E7 mRNA is detected from HPV types 16,18,31,33,35,39 ,45,51,52,56,58,5 9,66, and 68 by bean sprout laborer mediated amplification.Brittny ting was performed on specimen [id number] and was resulted on 08/14/2023 1623 EST by DRAGAN, LAB INSTRUMENT RESULTS IN 08/15/2023 10:16 [facility] Performing Lab [facility] 08/15/2023 10:16 [facility] Scanned Images 08/15/2023 10:16 [facility] Pap Test CERVIX UTERI STRUCTURE / Unknown 08/03/2023 15:00 EST 08/07/2023 9:56 EST us Loretta Chester [facility] PATHOLOGY ORDERABLES Final Re sult [facility] [address] [place] [address] documented in this encounter Visit Diagnoses Diagnosis Encounter for other general examination documented in this encounter Care Teams Wood Cut Engraver Relationship Specialty Start Date End Date Saritha Nelson MD [address] [place] [phone] PCP - General 06/20/18 documented as of this encounter
--- OUTSIDE RECORDS SUMMARY | 2024-08-23 00:28 | XMS_ITS | Encounter Summary ---
Author Organization [facility] Address [address] [place] [address] Care Team Providers Care Backshoe Person Name Role Phone Saritha Nelson MD Primary Care Provider +[phone] Encounter Details Date Type Department Care Team (Late st Contact Info) Description 01/03/2024 Lab Requisition [facility] Pathology & Laboratory Medicine - [facility] [address] [place] [address] Outr Resulting Lab, Provider Social History Tobacco [...] Procedure Name Priority Date/Time Associated Diagnosis Comments HIV 1/2 ANTIGEN AND ANTIBODY, 4TH GENERATION Routine 01/02/2024 16:10 EDT documented in this encounter Results * HIV 1/2 ANTIGEN AND ANTIBODY, 4TH GENERATION (01/02/2024 16:10 EDT) HIV 1 and 2 Antibody/p24 Antigen, 4th Generation Negative Negative 01/03/2024 19:02 EDT [facility] Comment:If acute HIV-1 infec tion is suspected in a high risk patient, submit plasma specimen for HIV-1 RNA quantitation test. Blood VENOUS BLOOD / Unknown 01/02/2024 16:10 EDT 01/03/2024 17:30 EDT Narrative [facility] - 01/03/2024 19:02 EDT Fourth Generation assay performed on the Siemens Centaur XPT. us Provider Outr Resulting Lab IMMUNOLOGY AND SEROL OGY ORDERABLES Final Result [facility] [address] [place] [address] documented in this encounter Visit Diagnoses Not on filedocumented in this encounter Care Teams Backshoe Person Relationship Specialty Start Date End Date Saritha Nelson MD [address] [place] [address] PCP - General 06/20/18 documented as of this encounter
--- OUTSIDE RECORDS SUMMARY | 2024-08-23 00:28 | XMS_ITS | Encounter Summary ---
Author Organization [facility] Address [address] [place] [address] Care Team Providers Care Manager Ui Name Role Phone Saritha Nelson MD Primary Care Provider [phone] Encounter Details Date Type Department Care Team (Late st Contact Info) Description 03/15/2021 Lab Requisition [facility] Pathology & Laboratory Medicine - [facility] [address] [place] [address] Nicolette Haji, ICE SELLER [address] [place] [phone] Encounter for other general examination Social History [...] Date/Time Associated Diagnosis Comments PAP TEST Today 03/15/2021 8:00 EDT Encounter for other general examination HPV DNA DETECTION WITH GENOTYPING, PCR Today 03/15/2021 8:00 EDT Encounter for other general examination documented in this encounter Results * HUMAN PAPILLOMAVIRUS (HPV) DETECTION-HIGH RISK TYPES (03/15/2021 8:00 EDT) HPV other High Risk types, PCR Negative Negative 03/25/2021 13:59 EDT [facility] Comment:No E6 or E7 mRNA is detected from HPV types 16,18,31,33,35,39,45,51,52,56,58,59,66, and 68 by health sciences dean mediated amplification. Papanicolaou smear specimen (specimen) CERVIX UTERI STRUCTURE / Unknown 03/15/2021 8:00 EDT 03/24/2021 13:35 EDT us Nicolette Haji NP MICROBIOLOGY - GENERAL ORDERAB LES Final Result [facility] [address] [place] [address] * PAP TEST (03/15/2021 8:00 EDT) Specimens A. Cervix and/or Endocervix , ThinPrep Imaging System with Manual Evaluation 03/25/2021 14:00 EDT [facility] Specimen Adequacy Satisfactory for Evaluation - transformation zone component present 03/25/2021 14:00 EDT [facility] General Categorization Negative for intraepithelial lesion or malignancy 03/25/2021 14:00 EDT [facility] Attestation . 03/25/2021 14:00 EDT [facility] at 1359 Clinical History See below 03/25/20 14:00 EDT [facility] HPV The result for the Human Papillomavirus (HPV) Detection-High Risk Types is Negative. No E6 or E7 mRNA is detected from HPV types 16,18,31,33,35,39 ,45,51,52,56,58,5 9,66, and 68 by health sciences dean mediated amplification.Brittny ting was performed on specimen [id number] and was resulted on 03/25/2021 1352 EDT by DRAGAN, LAB INSTRUMENT RESULTS IN 03/25/2021 14:00 EDT [facility] Performing Lab [facility] 03/25/2021 14:00 EDT [facility] Scanned Images 03/25/2021 14:00 EDT [facility] Papanicolaou smear specimen (specimen) CERVIX UTERI STRUCTURE / Unknown 03/15/2021 8:00 EDT 03/15/2021 16:34 EDT us Nicolette Haji ICE SELLER PATHOLOGY ORDERABLES Final Res ult [facility] [address] [place] [address] documented in this encounter Visit Diagnoses Diagnosis Encounter for other general examination documented in this encounter Care Teams Manager Ui Relationship Specialty Start Date End Date Saritha Nelson MD [address] [place] [address] PCP - General 06/20/18 documented as of this encounter
--- OUTSIDE RECORDS SUMMARY | 2024-08-23 00:28 | XMS_ITS | Encounter Summary ---
Author Organization [facility] Address [address] [place] [address] Care Team Providers Care Darklight Inspector Name Role Phone Saritha Nelson MD Primary Care Provider [phone] Encounter Details Date Type Department Care Team (Late st Contact Info) Description 01/03/2024 Lab Requisition [facility] Pathology & Laboratory Medicine - [facility] [address] [place] [address] Outr Resulting Lab, Provider Social History Tobacco [...] RNA BY PCR Routine 01/02/2024 16:10 EDT documented in this encounter Results * HEPATITIS C AB W REFLEX TO HCV RNA BY PCR (01/02/2024 16:10 EDT) Hep C Antibody Negative Negative 01/03/2024 19:23 EDT [facility] Blood VENOUS BLOOD / Unknown 01/02/2024 16:10 EDT 01/03/2024 17:30 EDT us Provider Outr Resulting Lab CHEMISTRY & BLOOD GA S ORDERABLES Final Result Performing Organization Address City/State/[facility] Co de Phone Number [facility] [address] [place] [phone] documented in this encounter Visit Diagnoses Not on filedocumented in this encounter Care Teams Darklight Inspector Relationship Specialty Start Date End Date Saritha Nelson MD [address] [place] [phone] PCP - General 06/20/18 documented as of this encounter
--- OUTSIDE RECORDS SUMMARY | 2024-08-23 00:28 | XMS_ITS | Encounter Summary ---
Author Organization [facility] Address [address] [place] [address] Care Team Providers Care Bird Tender Name Role Phone Saritha Nelson MD Primary Care Provider [phone] Encounter Details Date Type Department Care Team (Late st Contact Info) Description 08/04/2023 Lab Requisition [facility] Pathology & Laboratory Medicine - [address] [address] Outr Resulting Lab, Provider Social History Tobacco [...] Procedure Name Priority Date/Time Associated Diagnosis Comments ANTI NUCLEAR AB (GABRIELA), IFA Routine 08/03/2023 15:55 EST documented in this encounter Results * ANTI NUCLEAR AB (GABRIELA), IFA (08/03/2023 15:55 EST) GABRIELA Interpretation Negative Negative 2022 15:36 EST [facility] Comment:No titer performed, GABRIELA Screen is negative. Blood VENOUS BLOOD / Unknown 08/03/2023 15:55 EST 08/04/2023 17:06 EST Narrative [facility] - 08/07/2023 15:36 EST Results were obtained with the INOVA NOVA Lite HEp-2 GABRIELA Kit by indirect immunofluorescence. us Provider Outr Resulting Lab IMMUNOLOGY AND SEROL OGY ORDERABLES Final Result [facility] [address] [place] [address] documented in this encounter Visit Diagnoses Not on filedocumented in this encounter Care Teams Bird Tender Relationship Specialty Start Date End Date Saritha Nelson MD [address] [place] [address] [address] [place] [address] PCP - General 06/20/18 documented as of this encounter
--- OUTSIDE RECORDS SUMMARY | 2024-08-23 00:28 | XMS_ITS | Encounter Summary ---
Author [facility] [place] [address] Care Team Providers Care International Guest Coordinator Name Role Phone Rocio, Israel Ley DNP Primary Care Provider [phone] Reason for Referral * Consultation (Routine) - Closed Specialty Diagnoses / Procedures Referred By Contact Referred To Contact Hematology and Oncology Diagnoses Family history of lung cancer Family history of breast cancer in sister Family history of breast cancer in mother Postmenopausal Pure hypercholesterolemia Loretta Chester CNM [address] [place] [address] [address] [place] [address] [facility] [place] [facility] [address] [place] [address] Referral ID Status Reason Start Date Expiration Date V isits Requested Visits Authorized [id number] Closed Consult, Test & Treat PCP Updated and/or Approved 08/03/2023 08/03/2024 6 6 Encounter Details Date Type Department Care Team (Latest Contact Info) Description 08/09/2023 Transcribe Orders eDH Incoming Referrals [phone] Loretta Chester CNM [address] [place] [address] [address] [place], [place] [phone] Family history of lung cancer; Family history of breast cancer in sister; Family history of breast cancer in mother; Postmenopausal; Pure hypercholesterolemia Social History Tobacco Use Types Packs/Day Years Used Date Smoking Tobacco: Former Cigarettes Smokeless Tobacco: Never Sex and Gender Information Value Date Recorded Sex Assigned at Not on file Gender Identity Not on file Sexual Orientation Not on file documented as of this encounter Plan of Treatment Scheduled Referrals Name Type Priority Associated Diagnoses Orde r Schedule Referral to Genetics Outpatient Referral Routine Family history of lung cancer Family history of breast cancer in sister Family history of breast cancer in mother Postmenopausal Pure hypercholesterolemia Ordered: 08/09/2023 documented as of this encounter Visit Diagnoses Diagnosis Family history of lung cancer Family history of malignant neoplasm of trachea, bronchus, and lung Family history of breast cancer in sister Family history of malignant neoplasm of breast Family history of breast cancer in mother Family history of malignant neoplasm of breast Postmenopausal Asymptomatic postmenopausal status (age-related) (natural) Pure hypercholesterolemia documented in this encounter Care Teams International Guest Coordinator Relationship Specialty Start Date End Date Israel Chan DNP [address] [place] [place] [address] PCP - General Family Medicine 11/16/22 documented as of this encounter
--- OUTSIDE RECORDS SUMMARY | 2024-08-23 00:28 | XMS_ITS | Encounter Summary ---
Author Organization [facility] Address [facility] [place] [address] Care Team Providers Care Natural Gas Shothole Driller Name Role Phone Israel Chan AMBROCIO Primary Care Provider [phone] Reason for Visit * Reason Comments Skin Cancer Examination Encounter Details Date Type Department Care Team (Late st Contact Info) Description 11/16/2022 11:45 AM EDT Office Visit Dermatology at [facility] [address] [place] [address] Connie Qureshi MD [facility] [place] [place] [address] Seborrheic keratoses; Dermatofibroma; Actinic keratoses; Fibrous papule of nose; Xerosis cutis Social History Tobacco Use Types Packs/Day Years Used Date Smoking Tobacco: Former Cigarettes Smokeless Tobacco: Never Tobacco Cessation:Counseling Given: Not Answered Sex and Gender Information Value Date Recorded Sex Assigned at Not on file Gender Identity Not on file Sexual Orientation Not on file documented as of this encounter Progress Notes * Connie Qureshi MD - 11/16/2022 11:45 AM EDT Images from the original note were not included. DEPARTMENT OF DERMATOLOGY Medical D[facility]atology [facility] Provider: CONNIE QURESHI MD Patient's preferred name Jerica Preferred contact method for results [x]Phone (cell) []myD-H []Letter Detailed phone message OK? Yes Are there any other people with whom we may discuss your care? No Past Medical History Date, location, treatment Melanoma N Dysplastic nevi N SCC N BCC N AKs LN2 UV Exposure & Protection + history of blistering sunburn Wears sun protection Other relevant past medical history Hx of sebaceous cyst removed from back Family History Details Melanoma N NMSC Sister: unknown skin cancer (not melanoma) Other relevant family history N Social History Occupation: works in education Other: Pre-Procedure Screening Details Allergy to lidocaine, epinephrine, Dermabond, chlorhexidine, or adhesives N Bleeding disorder or blood thinners N Pacemaker, defibrillator, deep brain stimulator, cochlear implant N History of Present Illness: Shirin Constantino is a 52 y.o. Patient is new and self-referred to the clinic for a full skin exam with the following concerns: - Couple of lesions on the back that can be pruritic. - Lesion on the left thigh. Medications: Reviewed in eD-H Allergies: Reviewed in eD-H Skin Examination: Full skin examination: Patient asked to undress to their comfort level. Verbalized that the provider's preference is that patient remove all clothing and that the provider will not examine areas patient elects to keep covered. Examination of the scalp, hair, head, face, ears, neck, chest, axillae, abdomen, back, buttocks, mons pubis, and upper and lower extremities was normal with the exception of the findings below. Genitalia not examined. Assessment/Plan A. Actinic Keratosis - Ill-defined gritty papule on the left upper forehead x1. - Explained premalignant potential of these lesions. - Discussed treatment with cryotherapy. Patient elects to proceed with cryotherapy today. - Instructed patient to return to clinic for re-evaluation if lesion(s) does not resolve as expected with this treatment. Procedure: Destruction of lesion(s) with cryotherapy (LN2). Location(s): As noted above. Number: 1 Discussed procedure and expectations, including risks and benefits. Verbal consent obtained. Treated with LN2. There were no complications; Patient tolerated the procedure well. Post-procedure expectations and wound care reviewed. B. Seborrheic Keratoses - Stuck on, waxy papules on the trunk and extremities, including on the left thigh and back. - Discussed benign nature of lesions and provided reassurance. No treatment necessary at this time. C. Fibrous Papule - Flesh-colored, dome-shaped papule on the right nasal ala. - Discussed benign nature of lesion and provided reassurance. No treatment necessary at this time. - Reviewed that removal would result in a scar. Will defer removal at this time. D. Dermatofibroma - Firm papule, centrally raised and sclerotic, with peripheral hyperpigmentation and dimpling with lateral pressure on the right upper back. - Discussed that these are benign fibrous (scar-like) lesions. No treatment necessary. E. Xerosis - Diffuse xerosis. - Recommended applying a bland moisturizer (such as CeraVe cream or AmLactin) daily immediately after bathing. Other: ??? Sun protection discussed (protective clothing and SPF30+ broad-spectrum sunscreen) ??? OTC skin products discussed RTC: 1 year for FSE []Note routed to clerk secretary [x]Recall placed in scheduling system []Appointment scheduled at checkout Scribe attestation: Mariela Velasquez CMA has performed the documentation for this encounter in the presence of and acting as a scribe for CONNIE QURESHI MD. I performed the above scribed service and agree with the accuracy of the documentation in this encounter. Reviewed and signed by: CONNIE QURESHI MD Dermatology [facility] documented in this encounter Plan of Treatment Not on file documented as of this encounter Visit Diagnoses Diagnosis Seborrheic keratoses Dermatofibroma Benign neoplasm of skin, site unspecified Actinic keratoses Actinic keratosis Fibrous papule of nose Benign neoplasm of skin of other and unspecified parts of face Xerosis cutis Other specified disease of sebaceous glands documented in this encounter Care Teams Natural Gas Shothole Driller Relationship Specialty Start Date End Date Israel Chan DNP [address] [place] [address] PCP - General Family Medicine 11/16/22 documented as of this encounter
--- OUTSIDE RECORDS SUMMARY | 2024-08-23 00:29 | XMS_ITS | Encounter Summary ---
Author Organization [facility] Address [address] [place] [address] Care Team Providers Care Agriculture Instructor Name Role Phone Unavailable Primary Care Provider Unavailabl e Encounter Details Date Type Department Care Team (Late st Contact Info) Description 08/10/2005 Results Only [facility] - Maple conversion [address] [place] [address] Catherine So, [facility] [address] [place] [address] [place] [phone] Social History Tobacco Use Types Packs/Day Years Used Date Smoking Tobacco: Never Assessed Comments Unknown Sex and Gender Information Value Date Recorded Sex Assigned at Not on file Legal Sex Female 18:12 EST Gender Identity Not on file Sexual Orientation Not on file documented as of this encounter Plan of Treatment Not on file documented as of this encounter Procedures Procedure Name Priority Date/Time Associated Diagnosis Comments CYTOPATHOLOGY Routine 08/10/2005 0:00 EST documented in this encounter Results * CYTOPATHOLOGY (08/10/2005 0:00 EST) Pathology Report: CYTOPATHOLOGY REPORT Reports generated via electronic interface contain original data; however they are lacking the format of the original report. Caution should be taken when reading/interpreti ng unformatted reports. Name: ? SONIA CONSTANTINO ? Accession #: ? [id number] : ? 1970 (Age: 35) ??F ?Collect Date: ? 08/10/2005 Location: ? [facility] ? Receive Date: ? 08/12/2005 Provider: ?CATHERINE SO TURNAROUND PLANNER Copy to: ? Specimen/Source: ?ThinPrep Pap Test, Cervix/Endocervix, processed on Soft Health TechnologiesPrep Imaging System, with manual evaluation Last Menstrual Period: ? 08/03/05 Previous Gynecologic Pathology: ? ASC-US: Benign cellular changes: Other: ? HPVA - HPV testing requested if ASC-US on the current ThinPrep Pap test. ? SPECIMEN ADEQUACY ? Satisfactory for Evaluation - transformation zone component present GENERAL CATEGORIZATION ? Negative for Intraepithelial Lesion or Malignancy ? Document reviewed and electronically signed by: ? TIEN Johnston(ASCP) ? Report Date: ??08/16/2005 12:52 End of Report [facility]LY BOLES 08/10/2005 08/12/2005 us Catherine So TURNAROUND PLANNER PATHOLOGY ORDERABLES Final R esult [facility]LY BOLES [address] [place] [address] documented in this encounter Visit Diagnoses Not on filedocumented in this encounter
--- OUTSIDE RECORDS SUMMARY | 2024-08-23 00:29 | XMS_ITS | Encounter Summary ---
Author Organization [facility] Address [address] [place] [address] Care Team Providers Care Interstate Bus Driver Name Role Phone Saritha Nelson MD Primary Care Provider [phone] Reason for Visit * Reason Onset Date Comments Appointment Related 12/31/2018 FCP Encounter Details Date Type Department Care Team (Late st Contact Info) Description 12/31/2018 Telephone [facility] Cancer Center Hematology & Oncology - [facility] [address] [place] [address] Fcp, ProviderMD Appointment Related (FCP) Social History Tobacco Use Types Packs/Day Years [...] encounter Miscellaneous Notes * Telephone Encounter - Ritu Sinclair - 12/31/2018 0951 EDT Ritu Sinclair 07/25/2018 ??9:39 Called pt and LMOM offering FCP appt. Left direct line for pt to call back. Ritu Sinclair 07/25/2018 ??9:40 Per Dorothy: Patient's mother and her sister have both had genetic testing which was negative. Results were not available today to determine if multigene panel isneeded or not. Patient will obtain these records for this visit. Ritu Sinclair 10/02/2018 12:33 Called pt and LMOM to f/up on referral. Left direct line for pt to call back. Ritu Sinclair 11/01/2018 13:06 Called pt and LMOM to f/up on referral. Left direct line for pt to call back. Ritu Sinclair 11/28/2018 11:28 30day letter sent. documented in this encounter Plan of Treatment Not on file documented as of this encounter Visit Diagnoses Not on filedocumented in this encounter Care Teams Interstate Bus Driver Relationship Specialty Start Date End Date Saritha Nelson MD [address] [place] [phone] PCP - General 06/20/18 documented as of this encounter
--- OUTSIDE RECORDS SUMMARY | 2024-08-23 00:29 | XMS_ITS | Encounter Summary ---
Author Organization [facility] Address [address] [place] [address] Care Team Providers Care Cell Operation Supervisor Name Role Phone Saritha Nelson MD Primary Care Provider [phone] Reason for Visit * Reason Onset Date Comments Follow-up 07/23/2018 MRI Encounter Details Date Type Department Care Team (Late st Contact Info) Description 07/23/2018 Orders Only [facility] Surgical Oncology - [address] [address] Camilla De La Cruz, PAKimberleeC [address] [facility], [address] [place] [address] Family history of breast cancer (Primary Dx); Dense breast tissue Social History Tobacco Use Types Packs/Day Years [...] encounter Visit Diagnoses Diagnosis Family history of breast cancer- Primary Family history of malignant neoplasm of breast Dense breast tissue documented in this encounter Care Teams Cell Operation Supervisor Relationship Specialty Start Date End Date Saritha Nelson MD [address] [place] [phone] PCP - General 06/20/18 documented as of this encounter
--- OUTSIDE RECORDS SUMMARY | 2024-08-23 00:29 | XMS_ITS | Encounter Summary ---
Author Organization [facility] Address [address] [place] [address] Care Team Providers Care Recreation Supervisor Name Role Phone Unavailable Primary Care Provider Unavailabl e Encounter Details Date Type Department Care Team (Late st Contact Info) Description 01/05/2007 Results Only [facility] - Maple conversion [address] [place] [address] Catherine So, [facility] [address] [place] [address] [place] [phone] Social History Tobacco Use Types Packs/Day Years [...] Priority Date/Time Associated Diagnosis Comments CYTOPATHOLOGY Routine 01/05/2007 0:00 EDT documented in this encounter Results * CYTOPATHOLOGY (01/05/2007 0:00 EDT) Pathology Report: CYTOPATHOLOGY REPORT Reports generated via electronic interface contain original data; however they are lacking the format of the original report. Caution should be taken when reading/interpreti ng unformatted reports. Name: ? SONIA CONSTANTINO ? Accession #: ? [id number] : ? 1970 (Age: 36) ??F ?Collect Date: ? 01/05/2007 Location: ? [facility] ? Receive Date: ? 01/09/2007 Provider: ?CATHERINE SO PRODUCT CONSULTANT Copy to: ? Specimen/Source: ?ThinPrep Pap Test, Cervix/Endocervix, processed on [employer] ThinPrep Imaging System, with manual evaluation Last Menstrual Period: ? 12/15/06 Previous Gynecologic Pathology: ? ASC-US: Benign cellular changes: Other: ? HPVA - HPV testing requested if ASC-US on the current ThinPrep Pap test. ? SPECIMEN ADEQUACY ? Satisfactory for Evaluation - transformation zone component present GENERAL CATEGORIZATION ? Negative for Intraepithelial Lesion or Malignancy ? Document reviewed and electronically signed by: ? TIEN Riley(ASCP) ? Report Date: ??01/11/2007 12:56 End of Report CHARLY BOLES 01/05/2007 01/09/2007 us Catherine So PRODUCT CONSULTANT PATHOLOGY ORDERABLES Final R esult CHARLY BOLES [address] [place] [address] documented in this encounter Visit Diagnoses Not on filedocumented in this encounter
--- OUTSIDE RECORDS SUMMARY | 2024-08-23 00:29 | XMS_ITS | Encounter Summary ---
Author Organization [facility] Address [address] [place] [address] Care Team Providers Care Automatic Seamer Name Role Phone Saritha Nelson MD Primary Care Provider [phone] [phone] Reason for Visit * Reason Onset Date Comments Appointment Related 09/21/2018 Encounter Details Date Type Department Care Team (Late st Contact Info) Description 09/21/2018 Telephone [facility] Cancer Center Hematology & Oncology - [address] [address] Camilla De La Cruz, PA-C [address] [place] [address], [address] [place] [address] Appointment Related Social History Tobacco [...] encounter Miscellaneous Notes * Telephone Encounter - Libby Fernández - 09/21/2018 1115 EST Pt called to cancel appt on 09-24-18 and will call back to reschedule documented in this encounter Plan of Treatment Not on file documented as of this encounter Visit Diagnoses Not on filedocumented in this encounter Care Teams Automatic Seamer Relationship Specialty Start Date End Date Saritha Nelson MD [address] [place] [phone] PCP - General 06/20/18 documented as of this encounter
--- OUTSIDE RECORDS SUMMARY | 2024-08-23 00:29 | XMS_ITS | Encounter Summary ---
Author Organization [facility] Address [address] [place] [address] Care Team Providers Care Mapping Analyst Name Role Phone Unavailable Primary Care Provider Unavailabl e Encounter Details Date Type Department Care Team (Late st Contact Info) Description 07/01/2003 Results Only [facility] - Maple conversion [address] [place] [address] [place], [place] [id number] Social History Tobacco Use Types Packs/Day Years [...] Priority Date/Time Associated Diagnosis Comments CYTOPATHOLOGY Routine 07/01/2003 0:00 EST documented in this encounter Results * CYTOPATHOLOGY (07/01/2003 0:00 EST) Pathology Report: CYTOPATHOLOGY REPORT Reports generated via electronic interface contain original data; however they are lacking the format of the original report. Caution should be taken when reading/interpreti ng unformatted reports. Name: ? SONIA VAUGHN ? Accession #: ? [id number] : ? 1970 (Age: 33) ??F ?Collect Date: ? 07/01/2003 Location: ? [facility] ? Receive Date: ? 07/03/2003 Provider: ?RAVEN VICENTE GAMBINOM Copy to: ? Specimen/Source: ?ThinPrep Pap Test, Cervix/Endocervix Last Menstrual Period: ? 05/11/03 Menstrual/Pregnanc y Status: ? SPECIMEN ADEQUACY ? Satisfactory for Evaluation - transformation zone component present GENERAL CATEGORIZATION ? Negative for Intraepithelial Lesion or Malignancy INTERPRETATION ? 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 ? Document reviewed and electronically signed by: ? Adina Gray, TIEN(ASCP)(IAC) ? Report Date: ??07/09/2003 09:56 End of Report [facility] 07/01/2003 07/03/2003 us Raven Rincon CNM PATHOLOGY ORDERABLES Final Res ult [facility] BOLES [address] [place] [address] documented in this encounter Visit Diagnoses Not on filedocumented in this encounter
--- OUTSIDE RECORDS SUMMARY | 2024-08-23 00:29 | XMS_ITS | Encounter Summary ---
Author Organization [facility] Address [address] [place] [address] Care Team Providers Care Timber Packer Name Role Phone Unavailable Primary Care Provider Unavailabl e Encounter Details Date Type Department Care Team (Late st Contact Info) Description 05/25/2001 Results Only [facility] - Maple conversion [address] [place] [address] Catherine So, [facility] [address] [place] [address] [place] [phone] Social History Tobacco Use Types Packs/Day Years [...] Priority Date/Time Associated Diagnosis Comments CYTOPATHOLOGY Routine 05/25/2001 0:00 EDT documented in this encounter Results * CYTOPATHOLOGY (05/25/2001 0:00 EDT) Pathology Report: CYTOPATHOLOGY REPORT Reports generated via electronic interface contain original data; however they are lacking the format of the original report. Caution should be taken when reading/interpreti ng unformatted reports. Name: ? SONIA CONSTANTINO ? Accession #: ? [id number] : ? 1970 (Age: 30) ??F ?Collect Date: ? 05/25/2001 Location: ? [facility] ? Receive Date: ? 05/29/2001 Provider: ?CATHERINE SO [facility] Copy to: ? Specimen/Source: ?ThinPrep Pap Test, Cervix/Endocervix Last Menstrual Period: ? 05/16/01 Hormonal/Contracep tive Status: ? Oral contraceptives Previous Gynecologic Pathology: ? ASC-US: 03/19/99 Benign cellular changes: Other: ? Additional clinical information: Pap wnl ? SPECIMEN ADEQUACY ? Satisfactory for evaluation. GENERAL CATEGORIZATION ? Within Normal Limits ? Document reviewed and electronically signed by: ? TIEN Mosqueda(ASCP) ? Report Date: ??05/31/2001 13:19 End of Report [facility]OL[facility] 05/25/2001 05/29/2001 us Catherine So [facility] PATHOLOGY ORDERABLES Final R esult [facility] [address] [place] [address] documented in this encounter Visit Diagnoses Not on filedocumented in this encounter
--- OUTSIDE RECORDS SUMMARY | 2024-08-23 00:29 | XMS_ITS | Encounter Summary ---
Author Organization [facility] Address [address] [place] [address] Care Team Providers Care Atmospheric Sciences Professor Name Role Phone Saritha Nelson MD Primary Care Provider [phone] Reason for Referral * Consult (Routine) - Closed Specialty Diagnoses / Procedures [facility] Referred To Contact Cancer Genetics Diagnoses Family history of breast cancer Dense breast tissue Camilla De La Cruz PAKimberleeC Phone: tel: fax: Referral ID Status Reason Start Date Expiration Date V isits Requested Visits Authorized [id number] Closed Specialty Services Required 07/23/2018 1 1 Question Answer Reason for Request: Family history of breast cancer (both patient's mother and sister diagnosed with breast cancer diagnosed in their 40s). Please determine if additional genetic testing is needed for this family. Scheduling Comments (optional ? describe specific scheduling needs if applicable): Now, next available Comments Patient's mother and her sister have both had genetic testing which was negative. Results were not available today to determine if multigene panel is needed or not. Patient will obtain these records for this visit. Reason for Visit * Reason Onset Date Comments Advice Only 07/23/2018 FCP Encounter Details Date Type Department Care Team (Late st Contact Info) Description 07/23/2018 Orders Only [facility] Surgical Oncology - [facility] [address] [place], [place] [address] Camilla De La Cruz PAKimberleeC [address] [facility] [address] [place] [address] Family history of breast cancer (Primary Dx); [...] documented in this encounter Plan of Treatment Scheduled Referrals Name Type Priority Associated Diagnoses Orde r Schedule AMB CONS/FOLLOW UP FAMILIAL CANCER PROGRAM Outpatient Referral Routine Family history of breast cancer Dense breast tissue Ordered: 07/23/2018 documented as of this encounter Visit Diagnoses Diagnosis Family history of breast cancer- Primary Family history of malignant neoplasm of breast Dense breast tissue documented in this encounter Care Teams Atmospheric Sciences Professor Relationship Specialty Start Date End Date Saritha Nelson MD [address] [place] [address] [address] [place] [address] PCP - General 06/20/18 documented as of this encounter
--- OUTSIDE RECORDS SUMMARY | 2024-08-23 00:29 | XMS_ITS | Encounter Summary ---
Author Organization [facility] Address [address] [place] [address] Care Team Providers Care Supervisor Scenic Arts Name Role Phone Saritha Nelson MD Primary Care Provider [phone] Reason for Visit * Reason Comments New Patient Visit * Consult (Routine) - Closed Specialty Diagnoses / Procedures [facility] Referred To Contact Surgical Oncology Diagnoses Family history of malignant neoplasm of breast Catherine So, [address] [place] [address] Phone: tel: fax: [facility] Surgical Oncology [address] [address] Phone: tel: fax: Referral ID Status Reason Start Date Expiration Date Visits Re quested Visits Authorized [id number] Closed 1 1 Encounter Details Date Type Department Care Team (Late st Contact Info) Description 07/23/2018 14:00 EST Office Visit [facility] Surgical Oncology [address] [id number] Camilla De La Cruz, PA-C [address] [place] [address], [address] [place] [address] Family history of breast cancer [...] on file documented as of this encounter Last Filed Vital Signs Vital Sign Reading [...] Body Mass Index 21.81 07/23/2018 1400 EST documented in this encounter Functional Status * Because of [...] 07/23/2018 14:03 EST documented in this encounter Progress Notes * Camilla De La Cruz PA - 07/23/2018 1400 EST Subjective: Patient ID: Shirin Constantino is an 48 y.o. y.o. female Chief Complaint: Chief Complaint Patient presents with ??? New Patient Visit HPI: Division of Surgical Oncology- [facility] CONSULTATION- 07/23/2018 PROBLEM: 1. Family history of breast cancer SUBJECTIVE: Shirin Constantino is a 48 year old female who presents to our high risk clinic as a referral from Catherine So NP. Patient has been referred to our high-risk clinic due to her compelling family history of breast cancer. Patient is here today to discuss her own risk and to develop an appropriate screening plan. Patient is here today with her sister, Natasha who was recently diagnosed with breast cancer at age 44. She has more recently been treated at [facility]. Patient has some anxiety surrounding screening as her sister's breast cancer was not picked up on screening mammogram. It should be noted that her sister also has dense breast tissue. Patient's mother also was diagnosed with breast cancerat age 47. Both patient's mother and sister have had genetic testing and is reported as negative. We do not have these results available to us today to see if a multigene panel was tested or not. Natasha states today that she had genetic testing although never met with a genetic counselor to go over what her results meant in regards to her personally or her family. Patient would really be interested in meeting with a genetic counselor to discuss this further and determine if any additional testing is needed for this family. Patient does not have any concerns today. She denies any masses, skin changes or nipple discharge. Patient does not have a history of breast biopsies. SOUND EFFECTS MANAGER HISTORY: Menarche at age 13. . . Age 25 at first childbirth. Patient is perimenopausal and not having regular menstrual cycles. Patient has not taken any fertility drugs. She did take OCPs for 18 years with several interruptions during /. SOCIAL HISTORY: . Born in [place], [place]. Currently resides in [place], [place]. 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 She has two sons (a 14 and 21 yo). Patient is a former smoker. She smoked while in college for several years, 1 pack per month. She currently drinks 2 alcoholic drinks per day. FAMILY HISTORY: Patient is currently 48. She has two sons, a 14 and 21 year old who are both healthy. Patient has 3sisters. One sister (Natasha) was recently diagnosed with breast cancer at age 44. She underwent surgical intervention, chemotherapy and will be receiving radiation therapy in the near future. She states her tumor was ER/OH negative, HER 2+. She had genetic testing which was negative. Patient believes she was tested for more than BRCA1 and BRCA2 although we do not have the results of her testing available today. She has not met with a genetic counselor and only had testing. Patient's other two sisters do not have a history of malignancy. Patient's father is currently living and age 74. He does not have a history of malignancy. Patient's paternal grandmother at age 93. She did not have a history of malignancy. Patient's paternal grandfather did possibly have a history of colon cancer. He at age 93. Patient's father has 3 sisters and 1 brother, none with a history ofmalignancy. None of patient's paternal first cousins have a history of malignancy. This side of the family is Elida. Patient's mother was diagnosed with breast cancer at age 47. Patient states this was ER+. She was treated with a partial mastectomy and radiation therapy. She is currently 72. Patient's maternal grandmother and maternal grandfather have , neither had a history of malignancy. Patient's mother had 1 sister and 2 brothers, none with a history of malignancy. Patient's mother had 2 aunts that were diagnosed with breast cancer, one in her 40s and the other in her 80s. This side of the family is Scottish/Spanish. There is no problem list on file for this patient. Past Surgical History: Procedure Laterality Date ??? FINGER SURGERY Left 2016 Left thumb surgery ??? WISDOM TOOTH EXTRACTION ??? WRIST SURGERY Left 2016 Family History Problem Relation Age of Onset ??? Breast Cancer Mother 47 ??? Breast Cancer Sister 44 Social History Tobacco Use ??? Smoking status: Former Smoker Packs/day: 0.25 Years: 2.00 Pack years: 0.50 Types: Cigarettes Last attempt to quit: 1986 Years since quittin.9 ??? Smokeless tobacco: Never Used Substance Use Topics ??? Alcohol use: Yes Comment: 2 alcoholic drinks daily ??? Drug use: No Current Outpatient Medications: estradiol (ESTRING VAGL) No current facility-administered medications for this visit. No Known Allergies BP 112/53 Pulse 67 Temp 36.5 ??C (97.7 ??F) (Tympanic) Resp 12 Ht 163.6 cm (64.41) Wt 58.4 kg (128 lb 11.2 oz) BMI 21.81 kg/m?? Review of Systems: Constitutional: Positive for fatigue as she has not been sleeping well. Has discussed this with herPCP, Negative for chills, fever and weight loss Eyes: Negative for pain Respiratory: Negative for hemoptysis, shortness of breath and wheezing Cardiovascular: Negative for chest pain, claudication and leg swelling Gastrointestinal: Negative for abdominal pain Musculoskeletal: Negative for myalgias Skin: Negative for rash Neurological: Negative for sensory change, speech change, seizures and loss of consciousness Endo/Heme/Allergies: Does not bruise/bleed easily Psychiatric/Behavioral: Negative for hallucinations, substance abuse and suicidal ideas - See HPI Physical Exam: Constitutional: She is oriented to person, place and time. Vital signs are normal. She appears well-developed and well-nourished. No distress noted. Head: Normocephalic and atraumatic Eyes: No discharge. No scleral icterus. Cardiovascular: Normal rate and regular rhythm. Exam reveals no ke and no friction rub. Pulmonary/Chest: Effort normal and breath sounds normal. No respiratory distress. She has no wheezes, rhonchi or rales. Breast Exam: Breasts and axilla are examined in the seated and the supine position. Breasts are symmetric. Dense breast tissue appreciated in bilateral breasts. There are no discrete or obvious palpable abnormalities in either breast. There is no skin puckering, dimpling, nipple inversion/change, or nipple discharge. There is no obvious discoloration of the breast. There are no axillary masses Abdominal: Soft, no tenderness Lymphadenopathy: She has no cervical, supraclavicular or axillary adenopathy. Neurological: She is alert and oriented x3 Skin: Skin is warm and dry. No rash is present. No erythema or pallor is present. Psychiatric: Patient has normal mood and affect. Her behavior is normal. Vital signs have been reviewed. Screening mammogram performed at on 09/26/17 was read as Category 1-negative. Her breasts were noted to be heterogeneously dense. Assessment: Shirin presents to the high risk clinic today to establish care due to her compelling family history of breast cancer. We spent a great deal of time today discussing her risk as well as developing an appropriate screening plan. Patient does understand her risk is elevated as she has two first degree relatives (her mother and sister) that have been diagnosed with breast cancer in their 40s. Bothpatient's mother and sister have apparently had genetic testing which was negative although we do not have the results of this today. Patient's sister has only had genetic testing and has not met with a genetic counselor. Patient is very interested in meeting with a genetic counselor to see if any additional testing is needed for this family. I have suggested we obtain a copy of both her mother'sand sister's genetic testing results. They will sign a release for us to look at these on patient'sbehalf. A referral to [facility] has been made however I have stated to patient that it would be beneficial for her mother and sister to come to this appointment as well. She now understands that if additional testing would be needed (ie larger gene panel) it would be these individuals that would be doingthis testing and not the patient. Again, since we do not have the genetic testing results today, weneed to obtain these and it may be discovered that additional genetic testing is not needed for this family. I do feel that they would benefit from genetic counseling as it does not sound as though they have had this previously. Patient's lifetime risk for breast cancer is around 20% when using at least one risk assessment model that is largely dependent on family history (CAROL, version 8). Natalie model was later used and found her lifetime risk to be >20%. Patient has a lot of anxiety surrounding screening since her sister's breast cancer was missed on screening mammogram. Her sister has dense breast tissue and patient would like to proceed with an MRI as part of her screening since she also has dense breast tissue. We did discuss screening with a breast MRI and discussing its benefits and limitations including its sensitivity, risk of call backs, possibilities of biopsies and false positives. Patient does understand this is with IV contrast. Again, she would prefer to be screening with a breast MRI in addition to her annual mammogram. We did discuss that patient has dense breast tissue and that even when her risk falls below 20%, I would then recommend a high risk screening ultrasound due to her density. Patient should also be getting twice annual clinical breast exams and practicing breast awareness. Her breast exam today was difficult due to her breast density although noobvious areas of concern for malignancy. Plan: 1. Schedule screening mammogram 09/2018. Patient prefers this to be at an outside facility. I have asked patient to make sure we get a copy of her results. 2. Schedule breast MRI, next available 3. Return to clinic in 12 months for clinical breast exam. Patient can see her PCP or her SOUND EFFECTS MANAGER in 6 months for an additional clinical breast exam. 4. Encouraged patient to practice breast awareness and report any changes or new concerns to our office. 5. FCP referral 6. Patient will obtain genetic testing results from her sister and mother. It has been encouraged for patient's mother and sister to also come to P appointment. Patient was seen for 45 minutes and 30 minutes were spent in face to face counseling regarding family history of breast cancer and risk of occurrence. Screening plan for the way forward. I was directly supervised by our clinic physician, Dr. Salcedo, who was in the suite and immediatelyavailable for the entire time for the above documented service was provided. Encounter Diagnoses Name Primary? Family history of breast cancer Yes ??? Dense breast tissue ASH Tapia No orders of the defined types were placed in this encounter. documented in this encounter Plan of Treatment Not on file documented as of this encounter Procedures Procedure Name Priority Date/Time Associated Diagnosis Comments ORDERS - SCANNED 08/15/2018 22:36 EST documented in this encounter Results * ORDERS - SCANNED (08/15/2018 22:36 EST) 08/15/2018 22:3 6 EST us Scan 2 Chilling Hood Operator ADMISSION ORDERABLES Final Result documented in this encounter Visit Diagnoses Diagnosis Family history of breast cancer- Primary Family history of malignant neoplasm of breast Dense breast tissue documented in this encounter Historical Medications * This list may reflect changes made after this encounter. estradiol (ESTRING VAGL) Place vaginally. added in this encounter Care Teams Supervisor Scenic Arts Relationship Specialty Start Date End Date Saritha Nelson MD [address] [place] [address] [address] [place] [phone] PCP - General 06/20/18 documented as of this encounter
--- OUTSIDE RECORDS SUMMARY | 2024-08-23 00:29 | XMS_ITS | Encounter Summary ---
Author Organization [facility] Address [address] [place] [address] Care Team Providers Care Transportation Driver Name Role Phone Unavailable Primary Care Provider Unavailabl e Encounter Details Date Type Department Care Team (Late st Contact Info) Description 03/20/2008 Before PRISM Converted Visit (Maple) [facility] - Maple conversion [address] [place] [address] Catherine So, [address] [place] [phone] Social History Tobacco Use Types Packs/Day Years [...] Procedure Name Priority Date/Time Associated Diagnosis Comments HPV DETECTION, HIGH RISK TYPES Routine 03/20/2008 9:40 EDT CYTOPATHOLOGY Routine 03/20/2008 0:00 EDT documented in this encounter Results * HUMAN PAPILLOMA VIRUS DNA TEST (03/20/2008 9:40 EDT) Specimen Description Cervix, ThinPrep vial [facility] Result Negative for HPV types 16, 18, 31, 33, 35, 39, 45, 51, 52, 56, 58, 59, and 68. [facility] Report Status Final [id number] [facility] 03/20/2008 9:40 EDT 03/27/2008 15:20 EDT us Catherine Brisenogood WELDING MACHINE OPERATOR RESISTANCE MICROBIOLOGY - GENERAL ORDER [place] Final Result [facility] [address] [place] [address] * CYTOPATHOLOGY (03/20/2008 0:00 EDT) Pathology Report: CYTOPATHOLOGY REPORT ? Reports generated via electronic interface contain original data; ? however they are lacking the format of the original report. ? Caution should be taken when reading/interpreti ng unformatted reports. ? Name: ? SONIA VAUGHN ? Accession #: ? [id number] ? : ? 1970 (Age: 37) ??F ?Collect Date: ? 03/20/2008 ? Location: ? [facility] ? Receive Date: ? 03/20/2008 ? Provider: ?CATHERINE JUDAH WELDING MACHINE OPERATOR RESISTANCE ? Copy to: ? Specimen/Source: ?ThinPrep Pap Test, Cervix/Endocervix, processed on [employer] ThinPrep Imaging System, with manual evaluation ? Last Menstrual Period: ? 7/8/08 ? Previous Gynecologic Pathology: ? ASC-US: 7/99 ? Benign cellular changes: 9/00 ? Other: ? HPVDX - HPV testing requested regardless of diagnosis on current ThinPrep Pap ?? test. ? SPECIMEN ADEQUACY ? Satisfactory for Evaluation ? - transformation zone component present ? - scant squamous epithelial component ? GENERAL CATEGORIZATION ? Negative for Intraepithelial Lesion or Malignancy ? Document reviewed and electronically signed by: ? Sandra Vázquez, SCT(ASCP) ? Report Date: ??03/27/2008 11:11 ? End of Report ? [facility] 03/20/2008 03/20/2008 us Catherine So WELDING MACHINE OPERATOR RESISTANCE PATHOLOGY ORDERABLES Final R esult [facility] [address] [place] [address] documented in this encounter Visit Diagnoses Not on filedocumented in this encounter
--- OUTSIDE RECORDS SUMMARY | 2024-08-23 00:29 | XMS_ITS | Encounter Summary ---
Author Organization [facility] Address [address] [place] [address] Care Team Providers Care Painter Decorator Name Role Phone Unavailable Primary Care Provider Unavailabl e Encounter Details Date Type Department Care Team (Late st Contact Info) Description 05/09/2000 Results Only [facility] - Maple conversion [address] [place] [address] Catherine So, [facility] [address] [place] [address] [place] [phone] Social History Tobacco Use Types Packs/Day Years [...] Priority Date/Time Associated Diagnosis Comments CYTOPATHOLOGY Routine 05/09/2000 0:00 EDT documented in this encounter Results * CYTOPATHOLOGY (05/09/2000 0:00 EDT) Pathology Report: CYTOPATHOLOGY REPORT Reports generated via electronic interface contain original data; however they are lacking the format of the original report. Caution should be taken when reading/interpreti ng unformatted reports. Name: ? SONIA CONSTANTINO ? Accession #: ? [id number] : ? 1970 (Age: 29) ??F ?Collect Date: ? 05/09/2000 Location: ? [facility] ? Receive Date: ? 05/11/2000 Provider: ?CATHERINE SO GEOSPATIAL SPECIALIST Copy to: ? Specimen/Source: ?ThinPrep Pap Test, Cervix/Endocervix Last Menstrual Period: ? 04/25/00 Hormonal/Contracep tive Status: ? Oral contraceptives Previous Gynecologic Pathology: ? ASC-US: 03/19/99 Other: ? Additional clinical information: WNL ? SPECIMEN ADEQUACY ? Satisfactory for evaluation. GENERAL CATEGORIZATION ? Benign Cellular Changes DESCRIPTIVE DIAGNOSIS ? 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 ? Document reviewed and electronically signed by: ? Ant Ca, TIEN(ASCP) ? Report Date: ??05/15/2000 09:14 End of Report [facility] 05/09/2000 05/11/2000 Catherine So GEOSPATIAL SPECIALIST PATHOLOGY ORDERABLES Final R esult [facility] [address] [place] [address] documented in this encounter Visit Diagnoses Not on filedocumented in this encounter
--- OUTSIDE RECORDS SUMMARY | 2024-08-23 00:29 | XMS_ITS | Encounter Summary ---
Author Organization [facility] Address [address] [place] [address] Care Team Providers Care Sales Representative Womens [facility] Name Role Phone Unavailable Primary Care Provider Unavailabl e Encounter Details Date Type Department Care Team (Late st Contact Info) Description 07/09/2002 Results Only [facility] - Maple conversion [address] [place] [address] Catherine So, [facility] [address] [place] [address] [place] [phone] Social History Tobacco Use Types Packs/Day Years [...] Priority Date/Time Associated Diagnosis Comments CYTOPATHOLOGY Routine 07/09/2002 0:00 EST documented in this encounter Results * CYTOPATHOLOGY (07/09/2002 0:00 EST) Pathology Report: CYTOPATHOLOGY REPORT Reports generated via electronic interface contain original data; however they are lacking the format of the original report. Caution should be taken when reading/interpreti ng unformatted reports. Name: ? SONIA CONSTANTINO ? Accession #: ? [id number] : ? 1970 (Age: 32) ??F ?Collect Date: ? 07/09/2002 Location: ? [facility] ? Receive Date: ? 07/11/2002 Provider: ?CATHERINE SO SAP PAYROLL CONSULTANT Copy to: ? Specimen/Source: ?ThinPrep Pap Test, Cervix/Endocervix Last Menstrual Period: ? 06/15/02 Hormonal/Contracep tive Status: ? Oral contraceptives Previous Gynecologic Pathology: ? ASC-US: 03/19/99 Benign cellular changes: Other: ? Additional clinical information: Paps & 05/05 wnl ? SPECIMEN ADEQUACY ? Satisfactory for Evaluation - transformation zone component present GENERAL CATEGORIZATION ? Negative for Intraepithelial Lesion or Malignancy ? Document reviewed and electronically signed by: ? Srinath Rosenthal, TIEN(ASCP) ? Report Date: ??07/17/2002 08:31 End of Report [facility] 07/09/2002 07/11/2002 us Catherine So SAP PAYROLL CONSULTANT PATHOLOGY ORDERABLES Final R esult [facility] [address] [place] [address] documented in this encounter Visit Diagnoses Not on filedocumented in this encounter
--- OUTSIDE RECORDS SUMMARY | 2024-08-23 00:29 | XMS_ITS | Encounter Summary ---
Author Organization [facility] Address [address] [place] [address] Care Team Providers Care Machine Operations Supervisor Name Role Phone Saritha Nelson MD Primary Care Provider Encounter Details Date Type Department Care Team (Late st Contact Info) Description 06/26/2018 Results Only Imaging [facility] [address] [place] [address] Gerda Calderon MD [address] [facility] [address] [place] [phone] Social History Tobacco Use Types Packs/Day Years Used Date Smoking Tobacco: Never Assessed Comments Unknown Sex and Gender Information Value Date Recorded Sex Assigned at Not on file Legal Sex Female 18:12 EST Gender Identity Not on file Sexual Orientation Not on file documented as of this encounter Plan of Treatment Pending Results Name Type Priority Associated Diagnoses Date /Time OUTSIDE CD - MAMMO BREAST Imaging 10/04/2010 7:19 EST OUTSIDE CD - MAMMO BREAST Imaging 10/10/2011 7:19 EST OUTSIDE CD - MAMMO BREAST Imaging 07/05/2013 7:19 EDT OUTSIDE CD - MAMMO BREAST Imaging 07/16/2013 7:19 EST OUTSIDE CD - MAMMO BREAST Imaging 09/26/2017 7:19 EST documented as of this encounter Visit Diagnoses Not on filedocumented in this encounter Care Teams Machine Operations Supervisor Relationship Specialty Start Date End Date Saritha Nelson MD [address] [place] [address] [address] [place] [address] PCP - General 06/20/18 documented as of this encounter
--- OUTSIDE RECORDS SUMMARY | 2024-08-23 00:29 | XMS_ITS | Encounter Summary ---
Author Organization [facility] Address [address] [place] [address] Care Team Providers Care Draftsperson Name Role Phone Saritha Nelson MD Primary Care Provider [phone] Reason for Visit * Reason Onset Date Comments Appointment Related 06/25/2018 Returning Call 06/25/2018 Encounter Details Date Type Department Care Team (Late st Contact Info) Description 06/25/[address] [facility] Surgical Oncology - [address] [id number] Camilla De La Cruz PA-C [address] [place] [address], [address] [place] [address] Appointment Related; Returning Call Social History Tobacco Use Types Packs/Day Years Used Date Smoking Tobacco: Never Assessed Comments Unknown Sex and Gender Information Value Date Recorded Sex Assigned at Not on file Legal Sex Female 18:12 EST Gender Identity Not on file Sexual Orientation Not on file documented as of this encounter Miscellaneous Notes * Telephone Encounter - Meche Poenivia Riddle - 06/25/2018 1135 EDT Spoke with patient regarding new patient referral to the breast care center. Referring: Judah Reason: family hx of breast cancer Scheduled to see ASH Tapia on 07/23 at 2pm. Patient informed to arrive 20 minutes priorto scheduled new patient visit. A letter with this appointment information was sent to the patient via email along with the new patient paperwork. Referring notified. * Telephone Encounter - Jody Poe - 06/25/2018 1419 EDT Voicemail left with patient to return international exchange coordinator???s phone call at their earliest convenience. Direct phone number left with patient to discuss new patient referral. Will await call back. Jody Poe [phone] [facility] Third Grade Teacher documented in this encounter Plan of Treatment Not on file documented as of this encounter Visit Diagnoses Not on filedocumented in this encounter Care Teams Draftsperson Relationship Specialty Start Date End Date Saritha Nelson MD [address] [place] [address] PCP - General 06/20/18 documented as of this encounter
--- OUTSIDE RECORDS SUMMARY | 2024-08-23 00:29 | XMS_ITS | Encounter Summary ---
Author Organization [facility] Address [address] [place] [address] Care Team Providers Care Risk Developer Name Role Phone Unavailable Primary Care Provider Unavailabl e Encounter Details Date Type Department Care Team (Late st Contact Info) Description 09/16/2011 Results Only [facility] Laboratory Services - [facility] ([facility]) [address] [place], [place] [address] Catherine So, [facility] [address] [place] [address] [place] [phone] Social History Tobacco Use Types Packs/Day Years [...] Name Priority Date/Time Associated Diagnosis Comments PAP TEST- RESULT ONLY Routine 09/16/2011 0:00 EST documented in this encounter Results * PAP TEST- RESULT ONLY (09/16/2011 0:00 EST) Pathology Report: CYTOPATHOLOGY REPORT Reports generated via electronic interface contain original data; however they are lacking the format of the original report. Caution should be taken when reading/interpreti ng unformatted reports. Name: ? SONIA CONSTANTINO ? Accession #: ? [id number] ? : ? 1970 (Age: 41) ??F ?Collect Date: ? 09/16/2011 ? Location: ? [facility] ? Receive Date: ? 09/19/2011 ? Provider: CATHERINE SO REVISING CLERK Copy to: KINSEY ODELL MD ? Final Report SPECIMEN ADEQUACY ? Satisfactory for Evaluation - transformation zone component present GENERAL CATEGORIZATION ? Negative for Intraepithelial Lesion or Malignancy ?? Last Menstural Period: 09/03/11 Specimen/Source: ??Pap Test, Cervix/Endocervix, ThinPrep Imaging System with manual evaluation Document reviewed and electronically signed by: ? Tiki Victoria, TIEN(ASCP) ? Report ??Date: 09/20/2011 15:34 HPV with Pap Test ? Date Ordered: ? 09/20/2011 ? Status: ?? Signed Out ?Date Complete: ? 09/26/2011 ? By: ??System Interface ? Date Reported: ? 09/26/2011 ? Interpretation RESULT: Negative for HPV types 16, 18, 31, 33, 35, 39, 45, 51, 52, 56, 58, 59, and 68. Comments Document reviewed and electronically signed by: ? System Interface ? Report date: 09/26/2011 By the signature above, the attending physician certifies that he/she has personally conducted a gross and/or microscopic examination of the described specimens and rendered or confirmed the above diagnosis. End of Report [facility] 09/16/2011 09/19/2011 us Catherine So REVISING CLERK PATHOLOGY ORDERABLES Final R esult Performing Organization Address City/State/[facility] Co de Phone Number [facility] [address] [place] [address] documented in this encounter Visit Diagnoses Not on filedocumented in this encounter
--- OUTSIDE RECORDS SUMMARY | 2024-08-23 00:29 | XMS_ITS | Encounter Summary ---
Author Organization [facility] Address [address] [place] [address] Care Team Providers Care Executive Director Of Marketing Name Role Phone Unavailable Primary Care Provider Unavailabl e Encounter Details Date Type Department Care Team (Late st Contact Info) Description 07/20/2004 Results Only [facility] - Maple conversion [address] [place] [address] Catherine So, [facility] [address] [place] [address] [place] [phone] Social History Tobacco Use Types Packs/Day Years [...] Priority Date/Time Associated Diagnosis Comments CYTOPATHOLOGY Routine 07/20/2004 0:00 EST documented in this encounter Results * CYTOPATHOLOGY (07/20/2004 0:00 EST) Pathology Report: CYTOPATHOLOGY REPORT Reports generated via electronic interface contain original data; however they are lacking the format of the original report. Caution should be taken when reading/interpreti ng unformatted reports. Name: ? SONIA CONSTANTINO ? Accession #: ? [id number] : ? 1970 (Age: 34) ??F ?Collect Date: ? 07/20/2004 Location: ? [facility] ? Receive Date: ? 07/22/2004 Provider: ?CATHERINE SO ELECTRIC SOLDERER Copy to: ? Specimen/Source: ?ThinPrep Pap Test, Cervix/Endocervix Last Menstrual Period: ? 04/07 Menstrual/Pregnanc y Status: ? Post : delivered 5 months ago, nursing Previous Gynecologic Pathology: ? ASC-US: 03/19/99 Benign cellular changes: Other: ? Additional clinical information: 05/05, 07/06 & 06/06 paps negative HPVA - HPV testing requested if ASC-US on the current ThinPrep Pap test. ? SPECIMEN ADEQUACY ? Satisfactory for Evaluation - transformation zone component present GENERAL CATEGORIZATION ? Negative for Intraepithelial Lesion or Malignancy ? Document reviewed and electronically signed by: ? TIEN Manzanares(ASCP) ? Report Date: ??07/30/2004 13:06 End of Report [facility] 07/20/2004 07/22/2004 us Catherine So ELECTRIC SOLDERER PATHOLOGY ORDERABLES Final R esult [facility] [address] [place] [address] documented in this encounter Visit Diagnoses Not on filedocumented in this encounter
--- OUTSIDE RECORDS SUMMARY | 2024-08-23 00:29 | XMS_ITS | Encounter Summary ---
Author Organization [facility] Address [address] [place] [address] Care Team Providers Care Accounting Officer Name Role Phone Unknown, Provider MD Primary Care Provider Unava ilable Encounter Details Date Type Department Care Team (Late st Contact Info) Description 05/22/2017 Results Only [facility] [phone] Speedy Benites MD [address] [place] [address] Social History Tobacco Use Types Packs/Day Years [...] Diagnosis Comments PAP TEST- RESULT ONLY Routine 05/22/2017 0:00 EDT documented in this encounter Results * PAP TEST- RESULT ONLY (05/22/2017 0:00 EDT) Pathology Report: CYTOPATHOLOGY REPORT Reports generated via electronic interface contain original data; however they are lacking the format of the original report. Caution should be taken when reading/interpreti ng unformatted reports. Name: ? SONIA VAUGHN ? Accession #: ? [id number] ? : ? 1970 (Age: 46) ??F ?Collect Date: ? 05/22/2017 ? Location: ? [facility] ? Receive Date: ? 05/23/2017 ? Provider: SPEEDY BENITES MD Copy to: KINSEY ODELL MD ? Final Report SPECIMEN ADEQUACY ? Satisfactory for Evaluation - transformation zone component present GENERAL CATEGORIZATION ? Negative for Intraepithelial Lesion or Malignancy INTERPRETATION ? 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 Last Menstrual Period: 01/27/17 Infection History: Neg for HPV: HR Other: Previous NIL Pap(s): 2011 Specimen/Source: ??Pap Test, Cervix, ThinPrep Imaging System with manual evaluation Document reviewed and electronically signed by: ? TIEN Brunson(ASCP) ? Report ??Date: 05/31/2017 13:20 HPV with Pap Test ? Date Ordered: ? 05/31/2017 ? Status: ?? Signed Out ?Date Complete: ? 06/01/2017 ? By: ??System Interface ? Date Reported: ? 06/01/2017 ? Interpretation RESULT: Negative for HPV. No E6 or E7 mRNA is detected from HPV types 16,18,31,33,35, 39,45,51,52,56,58, 59,66, and 68 by assistant executive housekeeper mediated amplification. Comments Document reviewed and electronically signed by: ? System Interface ? Report date: 06/01/2017 By the signature above, the attending physician certifies that he/she has personally conducted a gross and/or microscopic examination of the described specimens and rendered or confirmed the above diagnosis. End of Report [facility] 05/22/2017 05/23/2017 us Speedy Benites MD PATHOLOGY ORDERABLES Final Resu lt [facility] [address] [place] [address] documented in this encounter Visit Diagnoses Not on filedocumented in this encounter Care Teams Accounting Officer Relationship Specialty Start Date End Date Unknown, Provider, PCP - General 08/14/12 06/19/18 documented as of this encounter
--- NOTE | 2024-08-23 14:30 | DI.MAMMO_ITS ---
Exam(s) MAMMO SCREENING EXAM: MAMMO SCREENING CLINICAL HISTORY: screening TECHNIQUE: Bilateral full field digital CC and MLO mammographic images were obtained with 3D tomosyn thesis and utilizing computer aided detection (CAD). COMPARISON: Available for comparison. FINDINGS: Masses/Architectural Distortion: There is a question of a asymmetry in the outer retroareolar region of the left breast on the craniocaudad view 3 cm from the nipple. No abnormalities are seen in the r ight breast. Microcalcifications: No suspicious pleomorphic-type are seen. Skin Thickening/Nipple Retraction: None. IMPRESSION: 1. Asymmetry in the outer retroareolar region of the left breast on the craniocaudad view. 2. This area should be further evaluated with a spot compression view. Depending on the results, a l imited left breast ultrasound may be indicated. BI-RADS Category 0 - Incomplete: Need additional imaging evaluation Breast Density - Category B - Scattered areas of fibroglandular density Breast density category C or D implies that the patient has dense breast tissue. Dense breast tissue is very common and is not abnormal but dense breast tissue can make it harder to find cancer on a ma mmogram. Also, dense breast tissue may increase their breast cancer risk. This information about the result of the mammogram report was provided to the patient to raise their awareness. Use this report when you speak with the patient about their risks for breast cancer, which includes their family hist ory. At that time, you may recommend for more screening tests (Ultrasound or MRI) as they might be us eful based on their risk. A negative radiographic report should not delay biopsy if a dominant or clinically suspicious mass is present. Up to ten percent of cancers are not identified on mammography. A negative report may reinforce clinical impression. Adenosis and dense breasts may obscure an underlying neoplasm. False positive reports average 6 to 10%. Patient will receive a letter notifying them of these results.
== END 2024-08-23 00:47 ==
LOC: DI 00:27
PROVIDERS: PCP Nurse Practitioner Family; Visit Provider Nurse Practitioner Women's Health
DX: Z12.31 Encounter for screening mammogram for malignant neoplasm of breast (principal); R92.323 Mammographic fibroglandular density, bilateral breasts
CPT/HCPCS: 77063; 77067

== ENCOUNTER 2024-08-29 00:06 | Outpatient (CLI) | payer BC, SELFPAY ==
--- NOTE | 2024-08-29 | DI.MAMMO_ITS ---
Exam(s) MG MAMMO SCREEN CALL BACK UNI US BREAST LT LIMITED EXAM: MG MAMMO SCREEN CALL BACK UNI CLINICAL HISTORY: F/U ABNL MAMMO, ASYMMETRY IN OUTER RETROAREOLAR REGION LT BREAST. TECHNIQUE: Craniocaudal spot compression digital Mammography views of the leftbreast with Tomosynthe sis and left breast ultrasound. COMPARISON: MG Screening Bilat Mammo from 09/26/2017 MG MG MAMMO SCREENING from 08/01/2022 MG MG MAMMO SCREENING from 08/11/2023 MG MG MAMMO SCREENING from 08/23/2024 FINDINGS: Mammography/Tomosynthesis: Masses: None seen. No persistent abnormality is seen on the spot compression views. Findings are co nsistent with overlying fibroglandular tissue. Architectural Distortion: None seen. Microcalcifictions: No suspicious pleomorphic-type are seen. Skin Thickening/Nipple Retraction: None. Left breast US: Echotexture: Normal appearance of the glandular tissue. Shadowing: No suspicious foci. Cyst: None. Solid lesions: None seen. Ductal dilation: None. IMPRESSION: 1. No evidence of malignancy is noted. 2. Unless there is more urgent need, follow-up screening mammography is recommended, as per [employer] [place] [employer] guidelines. 3. The findings were discussed with the patient on the date of the examination. BI-RADS Category 1 - Negative Breast Density - Category B - Scattered areas of fibroglandular density A negative radiographic report should not delay biopsy if a dominant or clinically suspicious mass is present. Up to ten percent of cancers are not identified on mammography. A negative report may reinforce clinical impression. Adenosis and dense breasts may obscure an underlying neoplasm. False positive reports average 6 to 10%. Patient will receive a letter notifying them of these results.
--- OUTSIDE RECORDS SUMMARY | 2024-08-29 00:08 | XMS_ITS | Encounter Summary ---
Author Organization [facility] Address [address] [place] [address] Care Team Providers Care Still Operator Brandy Name Role Phone Unavailable Primary Care Provider Unavailabl e Encounter Details Date Type Department Care Team (Late st Contact Info) Description 03/20/2008 Before PRISM Converted Visit (Maple) [facility] - Maple conversion [address] [place] [address] Catherine So, [address] [place] [phone] Social History Tobacco Use Types Packs/Day Years [...] 67. [facility] Report Status Final [id number] [facility] 03/20/2008 9:40 EDT 03/27/2008 15:20 EDT us Catherine Brisenogood KENO TERMINAL OPERATOR MICROBIOLOGY - GENERAL ORDER [place]YSON Final Result [facility] [address] [place] [address] * CYTOPATHOLOGY (03/20/2008 0:00 EDT) Pathology Report: CYTOPATHOLOGY REPORT ? Reports generated via electronic interface contain original data; ? however they are lacking the format of the original report. ? Caution should be taken when reading/interpreti ng unformatted reports. ? Name: ? SONIA VAUGHN ? Accession #: ? [id number] ? : ? 1970 (Age: 37) ??F ?Collect Date: ? 03/20/2008 ? Location: ? [facility] ? Receive Date: ? 03/20/2008 ? Provider: ?CATHERINE JUDAH KENO TERMINAL OPERATOR ? Copy to: ? Specimen/Source: ?ThinPrep Pap [...] [facility] 03/20/2008 03/20/2008 us Catherine So KENO TERMINAL OPERATOR PATHOLOGY ORDERABLES Final R esult [facility] [address] [place] [address] documented in this encounter Visit Diagnoses Not on filedocumented in this encounter
--- OUTSIDE RECORDS SUMMARY | 2024-08-29 00:08 | XMS_ITS | Encounter Summary ---
Author Organization [facility] Address [address] [place] [address] Care Team Providers Care Hand Tier Name Role Phone Unknown, Provider MD Primary Care Provider Unava ilable Encounter Details Date Type Department Care Team (Late st Contact Info) Description 05/22/2017 Results Only [facility] [phone] Speedy Benites MD [address] [place] [address] Social History Tobacco Use Types Packs/Day Years [...] ? SONIA VAUGHN ? Accession #: ? [id number] ? : ? 1970 (Age: 46) ??F [...] types 16,18,31,33,35, 39,45,51,52,56,58, 59,66, and 68 by professor of practice mediated amplification. Comments Document reviewed and electronically [...] Benites MD PATHOLOGY ORDERABLES Final Resu lt [facility] [address] [place] [address] documented in this encounter Visit Diagnoses Not on filedocumented in this encounter Care Teams Hand Tier Relationship Specialty Start Date End Date Unknown, Provider, PCP - General 08/14/12 06/19/18 documented as of this encounter
--- OUTSIDE RECORDS SUMMARY | 2024-08-29 00:08 | XMS_ITS | Encounter Summary ---
Author Organization [facility] Address [address] [place] [address] Care Team Providers Care Insurance Verification Clerk Name Role Phone Unavailable Primary Care Provider Unavailabl e Encounter Details Date Type Department Care Team (Late st Contact Info) Description 09/16/2011 Results Only [facility] Laboratory Services - [facility] ([facility]) [address] [place], [place] [phone] Catherine So, [facility] [address] [place] [address] [place] [phone] Social History Tobacco Use Types Packs/Day Years [...] ? SONIA CONSTANTINO ? Accession #: ? [id number] ? : ? 1970 (Age: 41) ??F ?Collect Date: ? 09/16/2011 ? Location: ? [facility] ? Receive Date: ? 09/19/2011 ? Provider: CATHERINE SO CONDEMNATION ENGINEER Copy to: KINSEY ODELL MD ? Final [...] confirmed the above diagnosis. End of Report [facility] 09/16/2011 09/19/2011 us Catherine So CONDEMNATION ENGINEER PATHOLOGY ORDERABLES Final R esult Performing Organization Address City/State/[facility] Co de Phone Number [facility] [address] [place] [address] documented in this encounter Visit Diagnoses Not on filedocumented in this encounter
--- OUTSIDE RECORDS SUMMARY | 2024-08-29 00:08 | XMS_ITS | Encounter Summary ---
Author Organization [facility] Address [address] [place] [address] Care Team Providers Care Campus Recruiting Intern Name Role Phone Unavailable Primary Care Provider Unavailabl e Encounter Details Date Type Department Care Team (Late st Contact Info) Description 01/05/2007 Results Only [facility] - Maple conversion [address] [place] [address] Catherine So, [facility] [address] [place] [address] [place] [phone] Social History Tobacco Use Types Packs/Day Years [...] ? SONIA CONSTANTINO ? Accession #: ? [id number] : ? 1970 (Age: 36) ??F ?Collect Date: ? 01/05/2007 Location: ? [facility] ? Receive Date: ? 01/09/2007 Provider: ?CATHERINE SO STRUCTURAL STEEL ERECTION SUPERVISOR Copy to: ? Specimen/Source: ?ThinPrep Pap Test, Cervix/Endocervix, processed on [employer] ThinPrep Imaging System, with manual evaluation Last [...] reviewed and electronically signed by: ? TIEN Rilye(ASCP) ? Report Date: ??01/11/2007 12:56 End of Report CHARLY BOLES 01/05/2007 01/09/2007 us Catherine So STRUCTURAL STEEL ERECTION SUPERVISOR PATHOLOGY ORDERABLES Final R esult CHARLY BOLES [address] [place] [address] documented in this encounter Visit Diagnoses Not on filedocumented in this encounter
--- OUTSIDE RECORDS SUMMARY | 2024-08-29 00:08 | XMS_ITS | Encounter Summary ---
Author Organization [facility] Address [address] [place] [address] Care Team Providers Care Earth Science Teacher Name Role Phone Saritha Nelson MD Primary Care Provider [phone] Reason for Visit * Reason Onset Date Comments Appointment Related 08/21/2019 Encounter Details Date Type Department Care Team (Late st Contact Info) Description 08/21/2019 Telephone [facility] Surgical Oncology - [facility] [address] [place], [place] [id number] Camilla De La Cruz, PA-C [address] [facility], [address] [place] [address] Appointment Related Social History Tobacco [...] Asked PT if they would like to [facility] and left contact information to [facility]. Dorothea Baird 08/21/2019 13:05 documented in this encounter Plan of Treatment Not on file documented as of this encounter Visit Diagnoses Not on filedocumented in this encounter Care Teams Earth Science Teacher Relationship Specialty Start Date End Date Saritha Nelson MD [address] [place] [address] PCP - General 06/20/18 documented as of this encounter
--- OUTSIDE RECORDS SUMMARY | 2024-08-29 00:08 | XMS_ITS | Encounter Summary ---
Author Organization [facility] Address [address] [place] [address] Care Team Providers Care Housekeeping Supervisor Name Role Phone Saritha Nelson MD Primary Care Provider [phone] Reason for Visit * Reason Comments New Patient Visit * Consult (Routine) - Closed Specialty Diagnoses / Procedures [facility] Referred To Contact Surgical Oncology Diagnoses Family history of malignant neoplasm of breast Catherine So, [address] [place] [address] Phone: tel: fax: [facility] Surgical Oncology [address] [address] Phone: tel: fax: Referral ID Status Reason Start Date Expiration Date Visits Re quested Visits Authorized [id number] Closed 1 1 Encounter Details Date Type Department Care Team (Late st Contact Info) Description 07/23/2018 14:00 EST Office Visit [facility] Surgical Oncology [address] [id number] Camilla De La Cruz, PA-C [address] [place] [address], [facility] [address] [place] [address] Family history of breast cancer [...] She has more recently been treated at [facility]. Patient has some anxiety surrounding screening as [...] not have a history of breast biopsies. ENVIRONMENTAL SERVICES DIRECTOR HISTORY: Menarche at age 13. . . Age 25 at first childbirth. Patient is perimenopausal and not having regular menstrual cycles. Patient has not taken any fertility drugs. She did take OCPs for 18 years with several interruptions during /. SOCIAL HISTORY: . Born in [place], [place]. Currently resides in [place], [place]. 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 She has two sons (a 14 [...] near future. 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 She had genetic testing [...] 80s. This side of the family is Estonian/Amharic. There is no problem list on file [...] have been reviewed. Screening mammogram performed at [facility] on 09/26/17 was read as Category 1-negative. [...] at these on patient'sbehalf. A referral to [facility] has been made however I have stated [...] Patient can see her PCP or her ENVIRONMENTAL SERVICES DIRECTOR in 6 months for an additional clinical [...] 08/15/2018 22:3 6 EST us Scan 2 Cryptographic Clerk ADMISSION ORDERABLES Final Result documented in this encounter Visit Diagnoses Diagnosis Family history of breast cancer- Primary Family history of malignant neoplasm of breast Dense breast tissue documented in this encounter Historical Medications * This list may reflect changes made after this encounter. estradiol (ESTRING VAGL) Place vaginally. added in this encounter Care Teams Housekeeping Supervisor Relationship Specialty Start Date End Date Saritha Nelson MD [address] [place] [address] [address] [place] [phone] PCP - General 06/20/18 documented as of this encounter
--- OUTSIDE RECORDS SUMMARY | 2024-08-29 00:08 | XMS_ITS | Encounter Summary ---
[place] [address] Care Team Providers Care Conference Services Director Name Role Phone Rocio, Israel Ley DNP Primary Care Provider [phone] Reason for Referral * Consultation (Routine) - Closed Specialty Diagnoses / Procedures Referred By Contact Referred To Contact Hematology and Oncology Diagnoses Family history of lung cancer Family history of breast cancer in sister Family history of breast cancer in mother Postmenopausal Pure hypercholesterolemia Loretta Chester CNM [address] [place] [address] [address] [place] [address] [facility] [address] [place] [address] Referral ID Status Reason Start Date Expiration Date V isits Requested Visits Authorized [id number] Closed Consult, Test & Treat PCP Updated and/or Approved 08/03/2023 08/03/2024 6 6 Encounter Details Date Type Department Care Team (Latest Contact Info) Description 08/09/2023 Transcribe Orders eDH Incoming Referrals [phone] Loretta Chester CNM [address] [place] [address] [address] [place], [place] [phone] Family history of lung cancer; Family history [...] hypercholesterolemia documented in this encounter Care Teams Conference Services Director Relationship Specialty Start Date End Date Israel Chan DNP [address] [place] [address] PCP - General Family Medicine 11/16/22 documented as of this encounter
--- OUTSIDE RECORDS SUMMARY | 2024-08-29 00:08 | XMS_ITS | Clinical Summary ---
Author Organization [facility] Address [address] [place] [address] Care Team Providers Care Relocation Commissioner Name Role Phone Saritha Nelson MD Primary Care Provider Allergies No known active allergies Medications estradiol [...] Completed 01/02/2024 Medical Devices Implanted Type Area Metal Flow Coordinator Device Identifier Shelf Expiration Date Model / [...] C Antibody Negative Negative 01/03/2024 19:23 EDT [facility] Blood VENOUS BLOOD / Unknown 01/02/2024 16:10 EDT 01/03/2024 17:30 EDT us Provider Outr Resulting Lab CHEMISTRY & BLOOD GA S ORDERABLES Final Result [facility] [address] [place] [address] from Last 3 Months or Most Recently Relevant to Health Maintenance Insurance [facility] Care Teams Relocation Commissioner Relationship Specialty Start Date End Date Saritha Nelson MD [address] [place] [place] [address] [address] [place] [phone] PCP - General 06/20/18
--- OUTSIDE RECORDS SUMMARY | 2024-08-29 00:08 | XMS_ITS | Encounter Summary ---
Author Organization [facility] Address [address] [place] [address] Care Team Providers Care Conditioner Tender Name Role Phone Unavailable Primary Care Provider Unavailabl e Encounter Details Date Type Department Care Team (Late st Contact Info) Description 05/25/2001 Results Only [facility] - Maple conversion [address] [place] [address] Catherine So, [facility] [address] [place] [address] [place] [phone] Social History Tobacco Use Types Packs/Day Years [...] ? SONIA CONSTANTINO ? Accession #: ? [id number] : ? 1970 (Age: 30) ??F ?Collect Date: ? 05/25/2001 Location: ? [facility] ? Receive Date: ? 05/29/2001 Provider: ?CATHERINE SO SUPERVISOR COMPOUNDING AND FINISHING Copy to: ? Specimen/Source: ?ThinPrep Pap Test, [...] CHARLY BOLES 05/25/2001 05/29/2001 us Catherine So SUPERVISOR COMPOUNDING AND FINISHING PATHOLOGY ORDERABLES Final R esult [facility] [address] [place] [address] documented in this encounter Visit Diagnoses Not on filedocumented in this encounter
--- OUTSIDE RECORDS SUMMARY | 2024-08-29 00:08 | XMS_ITS | Encounter Summary ---
Author Organization [facility] Address [address] [place] [address] Care Team Providers Care Development Technical Lead Name Role Phone Saritha Nelson MD Primary Care Provider [phone] Encounter Details Date Type Department Care Team (Late st Contact Info) Description 11/29/2021 Lab Requisition [facility] Pathology & Laboratory Medicine - [address] [address] Outr Resulting Lab, Provider Social History Tobacco [...] Priority Date/Time Associated Diagnosis Comments ZZCOVID-19 TEST [facility] PCR Today 11/29/2021 10:50 EDT COVID-19 TESTING Routine 11/29/2021 10:5 0 EDT documented in this encounter Results * COVID-19 TEST [facility] PCR (11/29/2021 10:50 EDT) Swab 11/29/2021 10:5 0 EDT 11/29/2021 21:43 EDT us Provider Outr Resulting Lab MICROBIOLOGY - GENER AL ORDERABLES Final Result [facility] [address] [place] [address] * COVID-19 TESTING (11/29/2021 10:50 EDT) COVID-19 rt-PCR Result Negative Negative 11/30/2021 13:50 EDT [facility] Comment: This test has not [...] was performed using the rochelle SARS-CoV-2 assay ([employer] on the Rochelle 6800 System Performing Lab [place] [address] [facility] 11/30/2021 13:50 EDT [facility] Swab 11/29/2021 10:5 0 EDT 11/29/2021 21:43 EDT us Provider Outr Resulting Lab MICROBIOLOGY - GENER AL ORDERABLES Final Result [facility] [address] [place] [address] documented in this encounter Visit Diagnoses Not on filedocumented in this encounter Care Teams Development Technical Lead Relationship Specialty Start Date End Date Saritha Nelson MD [address] [place] [address] PCP - General 06/20/18 documented as of this encounter
--- OUTSIDE RECORDS SUMMARY | 2024-08-29 00:08 | XMS_ITS | Encounter Summary ---
Author Organization [facility] Address [address] [place] [address] Care Team Providers Care Senior It Engineer Name Role Phone Saritha Nelson MD Primary Care Provider [phone] Encounter Details Date Type Department Care Team (Late st Contact Info) Description 01/03/2024 Lab Requisition [facility] Pathology & Laboratory Medicine - [facility] [address] [place] [address] Outr Resulting Lab, Provider Social History Tobacco [...] C Antibody Negative Negative 01/03/2024 19:23 EDT [facility] Blood VENOUS BLOOD / Unknown 01/02/2024 16:10 EDT 01/03/2024 17:30 EDT us Provider Outr Resulting Lab CHEMISTRY & BLOOD GA S ORDERABLES Final Result Performing Organization Address City/State/[facility] Co de Phone Number [facility] [address] [place] [phone] documented in this encounter Visit Diagnoses Not on filedocumented in this encounter Care Teams Senior It Engineer Relationship Specialty Start Date End Date Saritha Nelson MD [address] [place] [phone] PCP - General 06/20/18 documented as of this encounter
--- OUTSIDE RECORDS SUMMARY | 2024-08-29 00:08 | XMS_ITS | Encounter Summary ---
Author Organization [facility] Address [address] [place] [address] Care Team Providers Care Floor Coverings Installer Name Role Phone Saritha Nelson MD Primary Care Provider [phone] Reason for Visit * Reason Onset Date Comments Appointment Related 06/25/2018 Returning Call 06/25/2018 Encounter Details Date Type Department Care Team (Late st Contact Info) Description 06/25/2018 Telephone [facility] Surgical Oncology - [address] [phone] Camilla De La Cruz PA-C [address] [place] [address], [address] [place] [address] Appointment Related; Returning Call Social [...] Encounter - Meche Poenivia Riddle - 06/25/2018 4095 EDT Spoke with patient regarding new patient [...] EDT Voicemail left with patient to return administrative support coordinator???s phone call at their earliest convenience. Direct phone number left with patient to discuss new patient referral. Will await call back. Jody Poe [phone] [facility] Card Grader documented in this encounter Plan of Treatment Not on file documented as of this encounter Visit Diagnoses Not on filedocumented in this encounter Care Teams Floor Coverings Installer Relationship Specialty Start Date End Date Saritha Nelson MD [address] [place] [address] PCP - General 06/20/18 documented as of this encounter
--- OUTSIDE RECORDS SUMMARY | 2024-08-29 00:08 | XMS_ITS | Encounter Summary ---
Author Organization [facility] Address [address] [place] [address] Care Team Providers Care Small Stock Facer Name Role Phone Unavailable Primary Care Provider Unavailabl e Encounter Details Date Type Department Care Team (Late st Contact Info) Description 07/09/2002 Results Only [facility] - Maple conversion [address] [place] [address] Catherine So, [facility] [address] [place] [address] [place] [phone] Social History Tobacco Use Types Packs/Day Years [...] ? SONIA CONSTANTINO ? Accession #: ? [id number] : ? 1970 (Age: 32) ??F ?Collect Date: ? 07/09/2002 Location: ? [facility] ? Receive Date: ? 07/11/2002 Provider: ?CATHERINE SO ASSEMBLY LINE LEADER Copy to: ? Specimen/Source: ?ThinPrep Pap Test, [...] CHARLY BOLES 07/09/2002 07/11/2002 us Catherine So ASSEMBLY LINE LEADER PATHOLOGY ORDERABLES Final R esult [facility] [address] [place] [address] documented in this encounter Visit Diagnoses Not on filedocumented in this encounter
--- OUTSIDE RECORDS SUMMARY | 2024-08-29 00:08 | XMS_ITS | Encounter Summary ---
Author Organization [facility] Address [address] [place] [address] Care Team Providers Care Checker Loader Name Role Phone Saritha Nelson MD Primary Care Provider [phone] Encounter Details Date Type Department Care Team (Late st Contact Info) Description 01/03/2024 Lab Requisition [facility] Pathology & Laboratory Medicine - [facility] [address] [place] [address] Outr Resulting Lab, Provider Social History Tobacco [...] 4th Generation Negative Negative 01/03/2024 19:02 EDT [facility] Comment:If acute HIV-1 infec tion is suspected in a high risk patient, submit plasma specimen for HIV-1 RNA quantitation test. Blood VENOUS BLOOD / Unknown 01/02/2024 16:10 EDT 01/03/2024 17:30 EDT Narrative [facility] - 01/03/2024 19:02 EDT Fourth Generation assay performed on the Siemens Centaur XPT. us Provider Outr Resulting Lab IMMUNOLOGY AND SEROL OGY ORDERABLES Final Result [facility] [address] [place] [address] documented in this encounter Visit Diagnoses Not on filedocumented in this encounter Care Teams Checker Loader Relationship Specialty Start Date End Date Saritha Nelson MD [address] [place] [address] PCP - General 06/20/18 documented as of this encounter
--- OUTSIDE RECORDS SUMMARY | 2024-08-29 00:08 | XMS_ITS | Encounter Summary ---
Author Organization [facility] Address [address] [place] [address] Care Team Providers Care Bicycle Inspector Name Role Phone Saritha Nelson MD Primary Care Provider [phone] Reason for Visit * Reason Onset Date Comments Appointment Related 12/31/2018 FCP Encounter Details Date Type Department Care Team (Late st Contact Info) Description 12/31/2018 Telephone [facility] [place] Hematology & Oncology - [facility] [address] [place] [address] Fcp, ProviderMD Appointment Related (FCP) Social History [...] on filedocumented in this encounter Care Teams Bicycle Inspector Relationship Specialty Start Date End Date Saritha Nelson MD [address] [place] [phone] PCP - General 06/20/18 documented as of this encounter
--- OUTSIDE RECORDS SUMMARY | 2024-08-29 00:08 | XMS_ITS | Encounter Summary ---
Author Organization [facility] Address [facility] [place] [address] Care Team Providers Care Silk Snapper Name Role Phone Israel Chan AMBROCIO Primary Care Provider [phone] Reason for Visit * Reason Comments Skin Cancer Examination Encounter Details Date Type Department Care Team (Late st Contact Info) Description 11/16/2022 11:45 AM EDT Office Visit Dermatology at [facility] [address] [place] [address] Connie Qureshi MD [facility] [place] [address] Seborrheic keratoses; Dermatofibroma; Actinic keratoses; Fibrous papule [...] 1 year for FSE []Note routed to laboratory secretary [x]Recall placed in scheduling system []Appointment scheduled at checkout Scribe attestation: Mariela Velasquez CMA has performed the documentation for this encounter in the presence of and acting as a scribe for CONNIE QURESHI MD. I performed the above scribed service and agree with the accuracy of the documentation in this encounter. Reviewed and signed by: CONNIE QURESHI MD Dermatology [facility] documented in this encounter Plan of Treatment Not on file documented as of this encounter Visit Diagnoses Diagnosis Seborrheic keratoses Dermatofibroma Benign neoplasm of skin, site unspecified Actinic keratoses Actinic keratosis Fibrous papule of nose Benign neoplasm of skin of other and unspecified parts of face Xerosis cutis Other specified disease of sebaceous glands documented in this encounter Care Teams Silk Snapper Relationship Specialty Start Date End Date Israel Chan DNP [address] [place] [address] PCP - General Family Medicine 11/16/22 documented as of this encounter
--- OUTSIDE RECORDS SUMMARY | 2024-08-29 00:08 | XMS_ITS | Encounter Summary ---
Author Organization [facility] Address [address] [place] [address] Care Team Providers Care Medical Leader Name Role Phone Saritha Nelson MD Primary Care Provider [phone] Reason for Visit * Reason Onset Date Comments Follow-up 07/23/2018 MRI Encounter Details Date Type Department Care Team (Late st Contact Info) Description 07/23/2018 Orders Only [facility] Surgical Oncology - [address] [address] Camilla De La Cruz, PAKimberleeC [address] [facility], [address] [place] [address] Family history of breast cancer [...] tissue documented in this encounter Care Teams Medical Leader Relationship Specialty Start Date End Date Saritha Nelson MD [address] [place] [phone] PCP - General 06/20/18 documented as of this encounter
--- OUTSIDE RECORDS SUMMARY | 2024-08-29 00:08 | XMS_ITS | Encounter Summary ---
Author Organization [facility] Address [address] [place] [address] Care Team Providers Care Barrel Filler Name Role Phone Saritha Nelson MD Primary Care Provider [phone] Reason for Visit * Reason Onset Date Comments Appointment Related 09/21/2018 Encounter Details Date Type Department Care Team (Late st Contact Info) Description 09/21/2018 Telephone [facility] Hematology & Oncology - [address] [address] Camilla De La Cruz, PA-C [address] [place] [address], [address] [place] [address] Appointment Related Social History Tobacco [...] on filedocumented in this encounter Care Teams Barrel Filler Relationship Specialty Start Date End Date Saritha Nelson MD [address] [place] [phone] PCP - General 06/20/18 documented as of this encounter
--- OUTSIDE RECORDS SUMMARY | 2024-08-29 00:08 | XMS_ITS | Clinical Summary ---
Author Organization [facility] Address [facility] [place] [address] Care Team Providers Care Vehicle Return Associate Name Role Phone Rocio, Israel Ley DNP Primary Care Provider [phone] Allergies No known active allergies Medications Medication [...] Dates Next Due Covid-19 Monovalent (Paola /J&J) ([id number]) 11/20/2020 Covid-19 Monovalent (Moderna Spikevax) 12yrs+ () [...] 05/31/2005, 05/31/2005, Additional history exists Care Teams Vehicle Return Associate Relationship Specialty Start Date End Date Israel Chan DNP [facility] [address] [place], [place] [address] PCP - General Family Medicine 11/16/22
--- OUTSIDE RECORDS SUMMARY | 2024-08-29 00:08 | XMS_ITS | Encounter Summary ---
Author Organization [facility] Address [address] [place] [address] Care Team Providers Care Civil Service Clerk Name Role Phone Unavailable Primary Care Provider Unavailabl e Encounter Details Date Type Department Care Team (Late st Contact Info) Description 07/01/2003 Results Only [facility] - Maple conversion [address] [place] [address] [place], [place] [address] Social History Tobacco Use Types Packs/Day Years [...] ? SONIA VAUGHN ? Accession #: ? [id number] : ? 1970 (Age: 33) ??F ?Collect [...] ORDERABLES Final Res ult CHARLY BOLES [address] [place] [address] documented in this encounter Visit Diagnoses Not on filedocumented in this encounter
--- OUTSIDE RECORDS SUMMARY | 2024-08-29 00:08 | XMS_ITS | Encounter Summary ---
Author Organization [facility] Address [address] [place] [address] Care Team Providers Care Cosmetics And Toiletries Salesperson Name Role Phone Saritha Nelson MD Primary Care Provider [phone]- [phone] Encounter Details Date Type Department Care Team (Late st Contact Info) Description 03/15/2021 Lab Requisition [facility] Pathology & Laboratory Medicine - [facility] [address] [place] [address] Nicolette Haji, MIXOLOGIST [address] [place] [phone] Encounter for other general examination Social History [...] types, PCR Negative Negative 03/25/2021 13:59 EDT [facility] Comment:No E6 or E7 mRNA is detected from HPV types 16,18,31,33,35,39,45,51,52,56,58,59,66, and 68 by development representative mediated amplification. Papanicolaou smear specimen (specimen) CERVIX UTERI STRUCTURE / Unknown 03/15/2021 8:00 EDT 03/24/2021 13:35 EDT us Nicolette Haji NP MICROBIOLOGY - GENERAL ORDERAB LES Final Result [facility] [address] [place] [address] * PAP TEST (03/15/2021 8:00 EDT) Specimens A. Cervix and/or Endocervix , ThinPrep Imaging System with Manual Evaluation 03/25/2021 14:00 EDT [facility] Specimen Adequacy Satisfactory for Evaluation - transformation zone component present 03/25/2021 14:00 EDT [facility] General Categorization Negative for intraepithelial lesion or malignancy 03/25/2021 14:00 EDT [facility] Attestation . 03/25/2021 14:00 EDT [facility] at 1359 Clinical History See below 03/25/20 14:00 EDT [facility] HPV The result for the Human Papillomavirus (HPV) Detection-High Risk Types is Negative. No E6 or E7 mRNA is detected from HPV types 16,18,31,33,35,39 ,45,51,52,56,58,5 9,66, and 68 by development representative mediated amplification.Brittny ting was performed on specimen [id number] and was resulted on 03/25/2021 1352 EDT by DRAGAN, LAB INSTRUMENT RESULTS IN 03/25/2021 14:00 EDT [facility] Performing Lab [facility] 03/25/2021 14:00 EDT [facility] Scanned Images 03/25/2021 14:00 EDT [facility] Papanicolaou smear specimen (specimen) CERVIX UTERI STRUCTURE / Unknown 03/15/2021 8:00 EDT 03/15/2021 16:34 EDT us Nicolette Haji MIXOLOGIST PATHOLOGY ORDERABLES Final Res ult [facility] [address] [place] [address] documented in this encounter Visit Diagnoses Diagnosis Encounter for other general examination documented in this encounter Care Teams Cosmetics And Toiletries Salesperson Relationship Specialty Start Date End Date Saritha Nelson MD [address] [place] [address] PCP - General 06/20/18 documented as of this encounter
--- OUTSIDE RECORDS SUMMARY | 2024-08-29 00:08 | XMS_ITS | Encounter Summary ---
Author Organization [facility] Address [address] [place] [address] Care Team Providers Care Asset Protection Manager Name Role Phone Saritha Nelson MD Primary Care Provider Encounter Details Date Type Department Care Team (Late st Contact Info) Description 06/26/2018 Results Only Imaging [facility] [address] [place] [address] Gerda Calderon MD [address] [facility] Level [address] [place] [phone] Social History Tobacco Use Types Packs/Day Years [...] on filedocumented in this encounter Care Teams Asset Protection Manager Relationship Specialty Start Date End Date Saritha Nelson MD [address] [place] [address] [address] [place] [address] PCP - General 06/20/18 documented as of this encounter
--- OUTSIDE RECORDS SUMMARY | 2024-08-29 00:08 | XMS_ITS | Encounter Summary ---
Author Organization [facility] Address [address] [place] [address] Care Team Providers Care Salon Coordinator Name Role Phone Saritha Nelson MD Primary Care Provider [phone]- [phone] Encounter Details Date Type Department Care Team (Late st Contact Info) Description 08/07/2023 Lab Requisition [facility] Pathology & Laboratory Medicine - [address] [address] Loretta [place], [address] [place] [address] Encounter for other general examination Social History [...] Risk types, PCR Negative Negative 08/14/2023 16:23 [facility] Comment:No E6 or E7 mRNA is detected from HPV types 16,18,31,33,35,39,45,51,52,56,58,59,66, and 68 by commutator assembler mediated amplification. Pap Test CERVIX UTERI STRUCTURE / Unknown 08/03/2023 15:00 EST 08/11/2023 13:50 EST us Loretta [place] [facility] MICROBIOLOGY - GENERAL ORDERA BLES Final Result Performing Organization Address City/State/[facility] Co de Phone Number [facility] [address] [place] [address] * PAP TEST (08/03/2023 15:00 EST) Specimens A. Cervix and/or Endocervix , ThinPrep Imaging System with Manual Evaluation 08/15/2023 10:16 [facility] Specimen Adequacy Satisfactory for Evaluation - transformation zone component present 08/15/2023 10:16 [facility] General Categorization Negative for intraepithelial lesion or malignancy 08/15/2023 10:16 [facility] Descriptive Diagnosis Reactive cellular changes associated with inflammation present (includes repair). 08/15/2023 10:16 [facility] Attestation By the signature below, the attending physician certifies that they have personally conducted a gross and/or microscopic examination of the described specimens and rendered or confirmed the above diagnosis. 08/15/2023 10:16 [facility] at 1016 Clinical History SEE BELOW 08/15/20 10:16 [facility] HPV The result for the Human Papillomavirus (HPV) Detection-High Risk Types is Negative. No E6 or E7 mRNA is detected from HPV types 16,18,31,33,35,39 ,45,51,52,56,58,5 9,66, and 68 by commutator assembler mediated amplification.Brittny ting was performed on specimen [id number] and was resulted on 08/14/2023 1623 EST by DRAGAN, LAB INSTRUMENT RESULTS IN 08/15/2023 10:16 [facility] Performing Lab [facility] 08/15/2023 10:16 [facility] Scanned Images 08/15/2023 10:16 [facility] Pap Test CERVIX UTERI STRUCTURE / Unknown 08/03/2023 15:00 EST 08/07/2023 9:56 EST us Loretta [place] [facility] PATHOLOGY ORDERABLES Final Re sult [facility] [address] [place] [address] documented in this encounter Visit Diagnoses Diagnosis Encounter for other general examination documented in this encounter Care Teams Salon Coordinator Relationship Specialty Start Date End Date Saritha Nelson MD [address] [place] [phone] PCP - General 06/20/18 documented as of this encounter
--- OUTSIDE RECORDS SUMMARY | 2024-08-29 00:08 | XMS_ITS | Encounter Summary ---
Author Organization [facility] Address [address] [place] [address] Care Team Providers Care Coal Bagger Name Role Phone Saritha Nelson MD Primary Care Provider [phone] Reason for Referral * Consult (Routine) - Closed Specialty Diagnoses / Procedures [facility] Referred To Contact Cancer Genetics Diagnoses Family history of breast cancer Dense breast tissue Camilla De La Cruz PAKimberleeC Phone: tel: fax: Referral ID Status Reason Start Date Expiration Date V isits Requested Visits Authorized [id number] Closed Specialty Services Required 07/23/2018 1 1 [...] st Contact Info) Description 07/23/2018 Orders Only [facility] Surgical Oncology - [facility] [address] [place], [place] [address] Camilla De La Cruz PAKimberleeC [address] [facility] [address] [place] [address] Family history of breast cancer (Primary Dx); [...] tissue documented in this encounter Care Teams Coal Bagger Relationship Specialty Start Date End Date Saritha Nelson MD [address] [place] [address] [address] [place] [address] PCP - General 06/20/18 documented as of this encounter
--- OUTSIDE RECORDS SUMMARY | 2024-08-29 00:08 | XMS_ITS | Encounter Summary ---
Author Organization [facility] Address [address] [place] [address] Care Team Providers Care Correction Officer Supervisor Name Role Phone Saritha Nelson MD Primary Care Provider [phone] Encounter Details Date Type Department Care Team (Late st Contact Info) Description 12/22/2022 Lab Requisition [facility] Pathology & Laboratory Medicine - [address] [address] Harshad Mullins MD [address] [place] [address], [address] [place], [place] [address] Encounter for screening for malignant neoplasm of [...] explore management options, if applicable. 12/23/2022 14:10 [facility] Final Diagnosis A. COLON, CECUM, POLYP, BIOPSY: - Tubular adenoma. 12/23/2022 14:10 [facility] Attestation By the signature below, the attending physician certifies that they have 1) personally conducted a gross and/or microscopic examination of the described specimen(s), and/or personally interpreted the results of laboratory testing of the described specimen(s), and 2) personally rendered or confirmed the above diagnosis. 12/23/2022 14:10 [facility] at 1410 Clinical History Encounter for screening for malignant neoplasm of colon; colon cancer screening; clinical diagnosis code: Z12.11 12/23/2022 14:10 [facility] Gross Description A. Received in formalin labelled with proper patient identification (initials M, J) and cecal polyp is a light mcpherson polypoid tissue measuring 0.2 x 0.2 x 0.1 cm with an attached stalk measuring 0.5 x 0.1 x 0.1 cm. Submitted intact in A1. ASH MEJÍA(ASCP) 12/22/2022 18:23 12/23/2022 14:10 [facility] Performing Lab [facility] 12/23/2022 14:10 [facility] Scanned Images 12/23/2022 14:10 EDT [facility] Tissue CECUM STRUCTURE / Unknown 12/22/2022 8:19 EDT 12/22/2022 17:28 EDT us Harshad Mullins MD PATHOLOGY ORDERABLES Final Resu lt [facility] [address] [place] [address] documented in this encounter Visit Diagnoses Diagnosis Encounter for screening for malignant neoplasm of colon Special screening for malignant neoplasms, colon documented in this encounter Care Teams Correction Officer Supervisor Relationship Specialty Start Date End Date Saritha Nelson MD [address] [place] [phone] PCP - General 06/20/18 documented as of this encounter
--- OUTSIDE RECORDS SUMMARY | 2024-08-29 00:08 | XMS_ITS | Encounter Summary ---
Author Organization [facility] [place] [address] Care Team Providers Care Otr Flatbed Company Truck Driver Name Role Phone Israel Chan DNP Primary Care Provider [phone] Encounter Details Date Type Department Care Team [...] on filedocumented in this encounter Care Teams Otr [employer]bed [employer] Truck Driver Relationship Specialty Start Date End Date Israel Chan DNP [address] [place] [address] PCP - General Family Medicine 11/16/22 documented as of this encounter
--- OUTSIDE RECORDS SUMMARY | 2024-08-29 00:08 | XMS_ITS | Referral Summary ---
Author Organization [facility] Address [address] [place] [address] Care Team Providers Care Pipeline Controller Name Role Phone Saritha Nelson MD Primary Care Provider [phone]- [phone] Allergies No known active allergies Medications estradiol [...] on file Medical Devices Implanted Type Area Mandarin Tutor Device Identifier Shelf Expiration Date Model / [...] C Antibody Negative Negative 01/03/2024 19:23 EDT [facility] Blood VENOUS BLOOD / Unknown 01/02/2024 16:10 EDT 01/03/2024 17:30 EDT us Provider Outr Resulting Lab CHEMISTRY & BLOOD GA S ORDERABLES Final Result Performing Organization Address City/State/[facility] Co de Phone Number [facility] [address] [place] [address] from Last 3 Months or Most Recently Relevant to Health Maintenance Insurance [facility] Care Teams Pipeline Controller Relationship Specialty Start Date End Date Doportia, Saritha M, MD [address] [facility] [address] [place] [phone] PCP - General 06/20/18
--- OUTSIDE RECORDS SUMMARY | 2024-08-29 00:08 | XMS_ITS | Encounter Summary ---
Author Organization [facility] Address [address] [place] [address] Care Team Providers Care Metal Dealer Name Role Phone Unavailable Primary Care Provider Unavailabl e Encounter Details Date Type Department Care Team (Late st Contact Info) Description 05/09/2000 Results Only [facility] - Maple conversion [address] [place] [address] Catherine So, [facility] [address] [place] [address] [place] [phone] Social History Tobacco Use Types Packs/Day Years [...] ? SONIA CONSTANTINO ? Accession #: ? [id number] : ? 1970 (Age: 29) ??F ?Collect Date: ? 05/09/2000 Location: ? [facility] ? Receive Date: ? 05/11/2000 Provider: ?CATHERINE SO CHANNEL CEMENTER INSOLE MACHINE Copy to: ? Specimen/Source: ?ThinPrep Pap Test, [...] Report CHARLY BOLES 05/09/2000 05/11/2000 Catherine So CHANNEL CEMENTER INSOLE MACHINE PATHOLOGY ORDERABLES Final R esult [facility] [address] [place] [address] documented in this encounter Visit Diagnoses Not on filedocumented in this encounter
--- OUTSIDE RECORDS SUMMARY | 2024-08-29 00:08 | XMS_ITS | Encounter Summary ---
Author Organization [facility] Address [address] [place] [address] Care Team Providers Care Bituminous Paving Machine Operator Name Role Phone Unavailable Primary Care Provider Unavailabl e Encounter Details Date Type Department Care Team (Late st Contact Info) Description 08/10/2005 Results Only [facility] - Maple conversion [address] [place] [address] Catherine So, [facility] [address] [place] [address] [place] [phone] Social History Tobacco Use Types Packs/Day Years [...] ? SONIA CONSTANTINO ? Accession #: ? [id number] : ? 1970 (Age: 35) ??F ?Collect Date: ? 08/10/2005 Location: ? [facility] ? Receive Date: ? 08/12/2005 Provider: ?CATHERINE SO VENETIAN BLIND WASHER Copy to: ? Specimen/Source: ?ThinPrep Pap Test, Cervix/Endocervix, processed on GroupTalentPrep Imaging System, with manual evaluation Last Menstrual [...] CHARLY BOLES 08/10/2005 08/12/2005 us Catherine So VENETIAN BLIND WASHER PATHOLOGY ORDERABLES Final R esult [facility] [address] [place] [address] documented in this encounter Visit Diagnoses Not on filedocumented in this encounter
--- OUTSIDE RECORDS SUMMARY | 2024-08-29 00:08 | XMS_ITS | Encounter Summary ---
Author Organization [facility] Address [address] [place] [address] Care Team Providers Care Water Quality Analyst Name Role Phone Unavailable Primary Care Provider Unavailabl e Encounter Details Date Type Department Care Team (Late st Contact Info) Description 07/20/2004 Results Only [facility] - Maple conversion [address] [place] [address] Catherine So, [facility] [address] [place] [address] [place] [phone] Social History Tobacco Use Types Packs/Day Years [...] ? SONIA CONSTANTINO ? Accession #: ? [id number] : ? 1970 (Age: 34) ??F ?Collect Date: ? 07/20/2004 Location: ? [facility] ? Receive Date: ? 07/22/2004 Provider: ?CATHERINE SO SANITATION ASSOCIATE Copy to: ? Specimen/Source: ?ThinPrep Pap Test, [...] CHARLY BOLES 07/20/2004 07/22/2004 us Catherine So SANITATION ASSOCIATE PATHOLOGY ORDERABLES Final R esult [facility] [address] [place] [address] documented in this encounter Visit Diagnoses Not on filedocumented in this encounter
--- OUTSIDE RECORDS SUMMARY | 2024-08-29 00:08 | XMS_ITS | Encounter Summary ---
Author Organization [facility] Address [address] [place] [address] Care Team Providers Care Show Host/Hostess Name Role Phone Saritha Nelson MD Primary Care Provider [phone] Encounter Details Date Type Department Care Team (Late st Contact Info) Description 08/04/2023 Lab Requisition [facility] Pathology & Laboratory Medicine - [facility] [address] [place] [address] Outr Resulting Lab, Provider Social History Tobacco [...] GABRIELA Interpretation Negative Negative 2022 15:[address] [facility] Comment:No titer performed, GABRIELA Screen is negative. Blood VENOUS BLOOD / Unknown 08/03/2023 15:55 EST 08/04/2023 17:06 EST Narrative [facility] - 08/07/2023 15:36 EST Results were obtained with the INOVA NOVA Lite HEp-2 GABRIELA Kit by indirect immunofluorescence. us Provider Outr Resulting Lab IMMUNOLOGY AND SEROL OGY ORDERABLES Final Result [facility] [address] [place] [address] documented in this encounter Visit Diagnoses Not on filedocumented in this encounter Care Teams Show Host/Hostess Relationship Specialty Start Date End Date Saritha Nelson MD [address] [place] [address] [address] [place] [address] PCP - General 06/20/18 documented as of this encounter
== END 2024-08-29 00:26 ==
LOC: DI 00:06
PROVIDERS: PCP Nurse Practitioner Family; Visit Provider Nurse Practitioner Family
DX: Z12.31 Encounter for screening mammogram for malignant neoplasm of breast (principal); R92.323 Mammographic fibroglandular density, bilateral breasts
CPT/HCPCS: 76642; 77063; 77067